=== PATIENT | male | born 1960 | race Caucasian/White ===

== ENCOUNTER 2017-02-22 11:55 | Observation (INO) | payer OTHER ==
[2017-02-22] MEDS ORDERED: IPRATROPIUM-ALBUTEROL 3 ML NEB INHALATION STA (12:15)
[2017-02-22] MEDS ORDERED: LEVOFLOXACIN 750 MG TAB PO STA (12:15)
[2017-02-22] MEDS ORDERED: SODIUM CHLORIDE 0.9% 1,000 ML IV STA (12:15)
[2017-02-22] MEDS ORDERED: methylPREDNISolone SOD SUCCI 125 MG/2 ML VIAL IV STA (12:15)
[2017-02-22] MEDS ORDERED: ONDANSETRON 4 MG/2 ML VIAL IVP STA (12:19)
[2017-02-22] MEDS ORDERED: HYDROmorphone 1 MG/ML 1 ML SYRINGE IVP STA ×2 (12:19→14:48)
--- NOTE | 2017-02-22 12:21 | ED ---
SOB HPI - General Chief Complaint: Shortness of Breath Stated Complaint: Difficulty Breathing Time Seen by Provider: 02/22/17 11:59 Source: patient Mode of arrival: EMS Limitations: no limitations - History of Present Illness Initial Comments: Presenting complaining of shortness of breath, patient has a chronic shortness of breath he is a smoker and he has smoked for 48 years is 56 and now he started smoking when he was 8 years old. His shortness of breath has gotten worse for the last 3 days he denies any chest pain and there is no chest pain with a deep breaths at all denies any fever or chills he has a chronic cough and he has been bringing up some phlegm. Complaining about the back pain and back pain is also chronic he fell 3 days ago back pain is in the mid thoracic region no loss of bowel or bladder control - Related Data Home Medications Medication Instructions Recorded Confirmed Albuterol Nebulized [Ventolin 2.5 mg INHALATION RT-QID PRN 04/06/14 02/22/17 Nebulized] HYDROcodone/APAP 10-325MG [[place] 1 tab PO Q4HR PRN 04/06/14 02/22/17 10] Montelukast Sodium [Singulair] 10 mg PO DAILY 04/06/14 02/22/17 Omeprazole [PriLOSEC] 20 mg PO AC-BRKFST 04/06/14 02/22/17 amLODIPine [Norvasc] 10 mg PO DAILY 04/06/14 02/22/17 Albuterol Inhaler [Ventolin Hfa 2 puff INHALATION RT-QID PRN 02/22/17 02/22/17 Inhaler] Flunisolide [Aerospan] 2 puff INHALATION RT-BID 02/22/17 02/22/17 Umeclidinium [place] [Incruse 1 puff INHALATION RT-DAILY 02/22/17 02/22/17 Ellipta] Previous Rx's Medication Instructions Recorded Cyclobenzaprine [Flexeril] 10 mg PO TID #14 tab 05/09/15 Allergies Allergy/AdvReac Type Severity Reaction Status Date / Time morphine Allergy Itching Verified 02/22/17 12:50 Review of Systems ROS Statement: Those systems with pertinent positive or pertinent negative responses have been documented in the HPI. ROS Other: All systems not noted in ROS Statement are negative. Past Medical History Past Medical History: Chest Pain / Angina, COPD, GERD/Reflux, Liver Disease, Pneumonia, Vascular Disorder Additional Past Medical History / Comment(s): hearing loss bilateral ears, diverticulitis, Chronic Hepatits C, arthritis, chronic back pain, fracture left foot, right leg, ribs, and right arm due to injury, scoliosis History of Any Multi-Drug Resistant Organisms: MRSA Date of last positivie culture/infection: 2002 MDRO Source:: left hand wound Additional Past Surgical History / Comment(s): colonoscopy, bilateral hand surgery, left arm repair of severed arteries and tendons, Past Anesthesia/Blood Transfusion Reactions: No Reported Reaction Past Psychological History: Anxiety Smoking Status: Current every day smoker Past Alcohol Use History: None Reported Additional Past Alcohol Use History / Comment(s): occasional alcholol recently bur history of heavy use in the past. Past Drug Use History: Marijuana - Past Family History Father Family Medical History: Cancer General Exam - General Exam Comments Initial Comments: General: The patient is awake and alert, in no distress, and does not appear acutely ill. GCS is 15 Skin: Skin is warm and dry and no rashes or lesions are noted. Eye: Pupils are equal, round and reactive to light, extra-ocular movements are intact; there is normal conjunctiva bilaterally. Ears, nose, mouth and throat: There are moist mucous membranes and no oral lesions. Neck: The neck is supple, there is no tenderness him a no neck stiffness or any signs of meningitis he does have a chronic neck pain Cardiovascular: There is a regular rate and rhythm. No murmur, rub or gallop is appreciated. Respiratory: To auscultation bilateral, exam is consistent with a moderate to severe COPD Gastrointestinal: Soft, non-distended, non-tender abdomen without masses or organomegaly noted. There is no rebound or guarding present. Bowel sounds are unremarkable. Back: There is tenderness at the middle to lower thoracic region no paraspinal muscle spasms noticed, lumbar region is unremarkable Musculoskeletal: Normal ROM, no tenderness, There is no pedal edema. There is no calf tenderness or swelling. No cords were appreciated. Neurological: CN II-XII intact, Cranial nerves III through XII are intact. There are no obvious motor or sensory deficits. Coordination appears grossly intact. Speech is normal. Psychiatric: Cooperative, appropriate mood & affect, normal judgment. Limitations: no limitations Course Vital Signs 02/22/17 02/22/17 02/22/17 12:01 12:17 12:23 Temperature 97.9 F Pulse Rate 16 L 77 Respiratory 16 18 Rate Blood Pressure 141/82 O2 Sat by Pulse 97 Oximetry 02/22/17 02/22/17 02/22/17 12:34 13:15 14:15 Temperature 98.2 F Pulse Rate 81 85 81 Respiratory 18 18 Rate Blood Pressure 134/79 134/81 O2 Sat by Pulse 97 97 Oximetry I am EKG is normal sinus rhythm medical rate 71 NM interval is 166 QRS duration is 88 QT/QTc is 394/428 review of this EKG reveals T-wave inversion in lead [address] elevation or ST depression noticed in the other leads Is in was reassessed at 1545 patient still feels short winded and now though he didn't tell me when he came and he said he fell last night there was no heat in the house he tripped he denies any head injury but he said he fell day before as well and he would like to stay in the umbilical area and do a head CT make sure he doesn't have any subdural and will put him in for acute exacerbation of COPD and pneumonia Medical Decision Making - Lab Data Result diagrams: 02/22/17 12:12 02/22/17 12:12 Lab Results 02/22/17 02/22/17 02/22/17 Range/Units 12:12 12:12 12:12 WBC 6.9 (3.8-10.6) k/uL RBC 5.62 (4.30-5.90) m/uL Hgb 17.7 H (13.0-17.5) gm/dL Hct 52.8 (39.0-53.0) % MCV 93.8 (80.0-100.0) fL MCH 31.5 (25.0-35.0) pg MCHC 33.6 (31.0-37.0) g/dL RDW 13.1 (11.5-15.5) % Plt Count 289 (150-450) k/uL Neutrophils % 63 % Lymphocytes % 29 % Monocytes % 5 % Eosinophils % 0 % Basophils % 0 % Neutrophils # 4.4 (1.3-7.7) k/uL Lymphocytes # 2.0 (1.0-4.8) k/uL Monocytes # 0.3 (0-1.0) k/uL Eosinophils # 0.0 (0-0.7) k/uL Basophils # 0.0 (0-0.2) k/uL PT (9.0-12.0) sec INR (<1.1) APTT (22.0-30.0) sec Sodium 146 H (137-145) mmol/L Potassium 4.5 (3.5-5.1) mmol/L Chloride 110 H (98-107) mmol/L Carbon Dioxide 24 (22-30) mmol/L Anion Gap 12 mmol/L BUN 13 (9-20) mg/dL Creatinine 0.64 L (0.66-1.25) mg/dL Est GFR (MDRD) Af Amer >60 (>60 ml/min/1.73 sqM) Est GFR (MDRD) Non-Af >60 (>60 ml/min/1.73 sqM) Glucose 101 H (74-99) mg/dL Calcium 10.0 (8.4-10.2) mg/dL Total Bilirubin 0.6 (0.2-1.3) mg/dL AST 21 (17-59) U/L ALT 24 (21-72) U/L Alkaline Phosphatase 61 (38-126) U/L Total Creatine Kinase 50 L (55-170) U/L CK-MB (CK-2) 0.4 (0.0-2.4) ng/mL CK-MB (CK-2) Rel Index 0.8 Troponin I <0.012 (0.000-0.034) ng/mL NT-Pro-B Natriuret Pep pg/mL Total Protein 7.9 (6.3-8.2) g/dL Albumin 4.4 (3.5-5.0) g/dL 02/22/17 02/22/17 Range/Units 12:12 12:12 WBC (3.8-10.6) k/uL RBC (4.30-5.90) m/uL Hgb (13.0-17.5) gm/dL Hct (39.0-53.0) % MCV (80.0-100.0) fL MCH (25.0-35.0) pg MCHC (31.0-37.0) g/dL RDW (11.5-15.5) % Plt Count (150-450) k/uL Neutrophils % % Lymphocytes % % Monocytes % % Eosinophils % % Basophils % % Neutrophils # (1.3-7.7) k/uL Lymphocytes # (1.0-4.8) k/uL Monocytes # (0-1.0) k/uL Eosinophils # (0-0.7) k/uL Basophils # (0-0.2) k/uL PT 11.8 (9.0-12.0) sec INR 1.2 (<1.1) APTT 26.9 (22.0-30.0) sec Sodium (137-145) mmol/L Potassium (3.5-5.1) mmol/L Chloride (98-107) mmol/L Carbon Dioxide (22-30) mmol/L Anion Gap mmol/L BUN (9-20) mg/dL Creatinine (0.66-1.25) mg/dL Est GFR (MDRD) Af Amer (>60 ml/min/1.73 sqM) Est GFR (MDRD) Non-Af (>60 ml/min/1.73 sqM) Glucose (74-99) mg/dL Calcium (8.4-10.2) mg/dL Total Bilirubin (0.2-1.3) mg/dL AST (17-59) U/L ALT (21-72) U/L Alkaline Phosphatase (38-126) U/L Total Creatine Kinase (55-170) U/L CK-MB (CK-2) (0.0-2.4) ng/mL CK-MB (CK-2) Rel Index Troponin I (0.000-0.034) ng/mL NT-Pro-B Natriuret Pep 304 pg/mL Total Protein (6.3-8.2) g/dL Albumin (3.5-5.0) g/dL Critical Care Time Total Critical Care Time: 30 Critical Care Time: When he came in he was quite hypoxic down we gave him a neb treatments and Solu- Medrol and oxygen he felt slightly better also given some pain medication for his chronic back pain thoracic spine x-ray was done all these were excised all these were discussed with the patient at 1545 he still feels short winded and he is here feel more comfortable staying in a while then now arranged admission he will be on inhaled steroids IV steroids he will be covered for the community- acquired pneumonia and other quinolones or Rocephin and Zithromax along with the short and long-acting bronchodilators Disposition Clinical Impression: Acute exacerbation of chronic obstructive pulmonary disease (COPD), Pneumonia Disposition: ADMITTED IP TO THIS HOSP Condition: Good
[2017-02-22 12:39] LABS: Basophils % (A) 0 %; CH 30.3; CHCM 32.5; Eosinophils % (A) 0 %; HCT 52.8 % (39.0-53.0); HDW 2.32; HGB 17.7 gm/dL (13.0-17.5); Luc # (Auto) 0.19; Luc % (Auto) 3; Lymphocytes % (A) 29 %; MCH 31.5 pg (25.0-35.0); MCHC 33.6 g/dL (31.0-37.0); MCV 93.8 fL (80.0-100.0); Mean Platelet Volume 7.6; Monocytes # (A) 0.3 k/uL (0-1.0); Monocytes % (A) 5 %; Neutrophils # (A) 4.4 k/uL (1.3-7.7); Neutrophils % (A) 63 %; RBC 5.62 m/uL (4.30-5.90); RDW 13.1 % (11.5-15.5); WBC 6.9 k/uL (3.8-10.6); WBC (Perox) 6.77
[2017-02-22 12:48] LABS: INR 1.2 (<1.1); Partial Thromboplastin Time 26.9 sec (22.0-30.0); Prothrombin Time 11.8 sec (9.0-12.0)
[2017-02-22 12:49] LABS: ALT 24 U/L (21-72); AST 21 U/L (17-59); Alkaline Phosphatase 61 U/L (38-126); Anion Gap 12 mmol/L; Blood Urea Nitrogen 13 mg/dL (9-20); Carbon Dioxide 24 mmol/L (22-30); Chloride 110 mmol/L (98-107); Glucose 101 mg/dL (74-99); Non-African American GFR(MDRD) >60 (>60 ml/min/1.73 sqM); Potassium 4.5 mmol/L (3.5-5.1); Sodium 146 mmol/L (137-145); Total Bilirubin 0.6 mg/dL (0.2-1.3); Total Protein 7.9 g/dL (6.3-8.2)
[2017-02-22 12:58] LABS: Creatine Kinase 50 U/L (55-170)
--- NOTE | 2017-02-22 13:01 | XR ---
EXAMINATION TYPE: XR chest 2V DATE OF EXAM: 02/22/2017 12:53 PM COMPARISON: Chest x-ray May 09, 2015. HISTORY: Difficulty breathing per order. Chest pain today. TECHNIQUE: Frontal and lateral views of the chest are obtained. FINDINGS: There is patchy left basilar atelectasis and/or infiltrate. Underlying emphysematous change is suspected with increased retrosternal airspace and flattened hemidiaphragms on lateral view. Righ t lung is clear. No pleural effusion or pneumothorax is seen bilaterally. The cardiac silhouette size is within normal limits. Exaggerated thoracic kyphosis is noted. IMPRESSION: Chronic emphysematous change with patchy left basilar atelectasis and/or infiltrate on c urrent study.
--- NOTE | 2017-02-22 13:02 | XR ---
EXAMINATION TYPE: XR thoracic spine complete DATE OF EXAM: 02/22/2017 12:53 PM CLINICAL HISTORY: Mid back pain today. TECHNIQUE: Frontal, lateral, and swimmer's view of thoracic spine are obtained. COMPARISON: None. FINDINGS: Thoracic spine show exaggerated kyphosis without evidence of acute fracture or dislocation. Vertebral body heights are preserved. There is severe disc space narrowing with sclerosis and spurr ing at T8-T9 level. There is additional moderate multilevel anterior and lateral spurring in the mid to lower thoracic spine. There is mild to moderate disc space narrowing at T10-T11 level. Visualized ribs are intact bilaterally. IMPRESSION: Exaggerated kyphosis with multilevel degenerative changes as detailed above.
[2017-02-22 13:12] LABS: Creatine Kinase MB 0.4 ng/mL (0.0-2.4); Troponin I <0.012 ng/mL (0.000-0.034)
[2017-02-22] MEDS ORDERED: ALBUTEROL NEBULIZED 2.5 MG/3 ML INHALATION PRN (16:02)
[2017-02-22] MEDS ORDERED: ALBUTEROL INHALER 60 PUFF/8 GM INHALER INHALATION PRN (16:02)
[2017-02-22] MEDS ORDERED: RX INFO: IV CONTRAST WAS GIVEN 1 EACH MISC MISCELLANE PRN (16:04)
--- NOTE | 2017-02-22 16:47 | CT ---
EXAMINATION TYPE: CT brain wo con DATE OF EXAM: 02/22/2017 4:41 PM COMPARISON: NONE HISTORY: Patient complains of dizziness and syncopal episodes. CT DLP: 979 mGycm Automated exposure control for dose reduction was used. FINDINGS: Central structures are midline. There is no evidence of hydrocephalus. No acute focal lesion, mass ef fect or midline shift is seen. I do not see evidence of intracranial blood. There is chronic mucoperiosteal thickening involving ethmoid sinuses. There is a small air-fluid leve l in the left maxillary sinus. The frontal sinuses are hypoplastic. The mastoid air cells are normal. There is no depressed skull fracture. IMPRESSION: 1. NO ACUTE INTRACRANIAL ABNORMALITY. 2. ACUTE ON CHRONIC SINUSITIS INVOLVING THE ETHMOID AND LEFT MAXILLARY SINUS.
--- NOTE | 2017-02-22 16:55 | CT ---
EXAMINATION TYPE: CT angio chest DATE OF EXAM: 02/22/2017 4:45 PM COMPARISON: NONE HISTORY: Patient complains of shortness of breath with history of COPD and smoking for [address] DLP: 206.5 mGycm. Automated Exposure Control for Dose Reduction was Utilized. CONTRAST: CTA scan of the thorax is performed with IV Contrast, patient injected with 100 mL of Omnipaque 350, pulmonary embolism protocol. MIP Images are created on CT scanner and reviewed. FINDINGS: LUNGS: There is mild to moderate underlying emphysematous change present bilaterally. Evaluation of l ower lungs is suboptimal as there is respiratory motion artifact degradation limiting evaluation for subcentimeter nodularity. There is some linear atelectasis or scarring posteriorly in both lung bases . No pleural effusion or pneumothorax is seen bilaterally. MEDIASTINUM: There is suboptimal bolus with equal contrast noted in right and left heart systems, the re is no central saddle or lobar pulmonary embolism, smaller segmental and subsegmental PE cannot be entirely excluded on this exam. There are no greater than 1 cm hilar or mediastinal lymph nodes. P rominent but subcentimeter prevascular, paratracheal, and bilateral hilar lymph nodes are seen. No pe ricardial effusion is seen. Heart size is upper limits of normal. OTHER: Low dense thickening to both adrenal glands is felt to reflect hyperplasia. There is multileve l spurring in the lower thoracic and upper lumbar spine with multilevel disc space narrowing and vacu um disc phenomenon. There is sclerosis at T8-T9 level noted. Some sclerotic endplate changes are also present. IMPRESSION: 1. Suboptimal bolus without central pulmonary embolism, smaller segmental and subsegmental PE cannot be excluded on this exam. 2. Mild to moderate underlying emphysematous change without suspicious acute pulmonary process.
[2017-02-22] MEDS: methylPREDNISolone SOD SUCCI 125 MG/2 ML VIAL IV SCH ×2 (18:29→23:30)
[2017-02-22] MEDS: HYDROcodone/APAP 10-325MG 1 EACH TAB PO PRN ×2 (18:44→23:34)
[2017-02-22] MEDS ORDERED: FLUNISOLIDE INHALATION SCH (20:00)
[2017-02-22] MEDS ORDERED: SUMAtriptan SUCCINATE 50 MG TAB PO STA (20:17)
--- NOTE | 2017-02-22 20:55 | P.HPIM ---
History of Present Illness Patient admitted dictated admission history and physical #[id number] dictation number Past Medical History Past Medical History: Chest Pain / Angina, COPD, GERD/Reflux, Hypertension, Liver Disease, Osteoarthritis (OA), Pneumonia, Vascular Disorder Additional Past Medical History / Comment(s): hearing loss bilateral ears, diverticulitis, Chronic Hepatits C-stated on a waiting list for tx, arthritis, chronic back pain, fracture left foot NEVER HAD SX- ANKLE NOT STABLE, right leg , ribs, and right arm due to injury, scoliosis RUPTURED DISC, SEASONAL ALLERGIES , "dizzy spells alst 3 days" History of Any Multi-Drug Resistant Organisms: MRSA Date of last positivie culture/infection: 2002 MDRO Source:: left hand wound Additional Past Surgical History / Comment(s): liver bx( found hep c), bilateral hand surgery-tendon repair, left arm repair of severed arteries and tendons, Past Anesthesia/Blood Transfusion Reactions: No Reported Reaction Past Psychological History: Anxiety Smoking Status: Current every day smoker Past Alcohol Use History: None Reported Additional Past Alcohol Use History / Comment(s): started smoking at age 8- currently 1-2 packs per day. past heacvy etoh quit 3 years ago. Past Drug Use History: Marijuana Additional Drug Use History / Comment(s): quit marijuana 1 year ago - Past Family History Father Family Medical History: Cancer Medications and Allergies Home Medications Medication Instructions Recorded Confirmed Type Albuterol Nebulized [Ventolin 2.5 mg INHALATION RT-QID PRN 04/06/14 02/22/17 History Nebulized] HYDROcodone/APAP 10-325MG [[place] 1 tab PO Q4HR PRN 04/06/14 02/22/17 History 10] Montelukast Sodium [Singulair] 10 mg PO DAILY 04/06/14 02/22/17 History Omeprazole [PriLOSEC] 20 mg PO AC-BRKFST 04/06/14 02/22/17 History amLODIPine [Norvasc] 10 mg PO DAILY 04/06/14 02/22/17 History Albuterol Inhaler [Ventolin Hfa 2 puff INHALATION RT-QID PRN 02/22/17 02/22/17 History Inhaler] Flunisolide [Aerospan] 2 puff INHALATION RT-BID 02/22/17 02/22/17 History Umeclidinium [place] [Incruse 1 puff INHALATION RT-DAILY 02/22/17 02/22/17 History Ellipta] Allergies Allergy/AdvReac Type Severity Reaction Status Date / Time morphine Allergy Itching Verified 02/22/17 12:50 Physical Exam Vitals: Vital Signs Temp Pulse Pulse Resp BP BP Pulse Ox 02/22/17 18:12 96.4 F L 67 18 137/72 96 02/22/17 17:27 98.2 F 69 18 137/90 97 02/22/17 16:06 74 20 163/84 98 Results CBC & Chem 7: 02/22/17 12:12 02/22/17 12:12
[2017-02-22] MEDS: IPRATROPIUM-ALBUTEROL 3 ML NEB INHALATION PRN (21:18)
[2017-02-22] MEDS: BUDESONIDE 0.5 MG/2 ML NEBU INHALATION SCH (21:24)
[2017-02-22] MEDS: SODIUM CHLORIDE 0.9% 1,000 ML IV SCH (21:24)
[2017-02-22 21:27] LABS: INR 1.3 (<1.1); Partial Thromboplastin Time 27.7 sec (22.0-30.0); Prothrombin Time 12.4 sec (9.0-12.0)
[2017-02-22] MEDS ORDERED: CYCLOBENZAPRINE 10 MG TAB PO SCH (22:00)
[2017-02-22] MEDS: traZODone HCL 100 MG TAB PO SCH (23:30)
--- NOTE | 2017-02-22 23:30 | HP ---
DATE OF ADMISSION: 02/22/2017 Age 56-year-old white male, . New data: He is 5 feet 5 inches. Weight 63.50 kg, BSA 1.70 sq m, BMI 23.3 kg/sq m. Allergy to morphine. CHIEF COMPLAINT: The patient was seen in the emergency room by the ER physician, Dr. Herring because of the shortness of breath could not breathe for the last 4 days duration. HISTORY OF PRESENT ILLNESS: Patient well known to me as well as Dr. Carolina Kwong who has been under care for him as well. The patient was not seen 4 more than 6 months to 8 months and he said that he was busy. He presented to the emergency room with shortness of breath and was feeling no more air come the lung that progressed in the last 4 days. The patient new complaint has been dizzy and have been passing out in the last 4 days as well happened to him 3 times per day. The patient has advanced emphysema and chronic obstructive pulmonary disease he has been smoking 2 packs per day. He was complaining that he could not sleep. He takes trazodone 50 mg at home; however, only gives him sleep for two hours. He felt sweating and coughing light green for the last 10 years. He was treated in the past with injections over there by Dr. ROSA M Kwong. The patient has been smoking 2 packs per day for the last 40 years. PAST MEDICAL HISTORY: He has underlying hepatitis C and he has been under care of Dr. Andrews and actually the one who sees him the Physician junior assistant manager, Mercedes Rivera and he was not treated so far. He has been seeing him for at least 3 to 4 years. He stated that he was not able to get the medicine and he is on the list. He quit drinking alcohol in the last 2 years. He is a . His first and after that he had a girlfriend for 30 years but currently she left him as well. He has 4 children and 13 grandchildren. He does not smoke marijuana currently. He felt that not helping him. He had pain in the spine found with the x-ray done in hospital thoracic x-ray that he had sclerosis at level 8 and 9 and he had discogenic disease at the 12th and he had also had mild kyphosis with tenderness on the back and he takes some pain medication. He also complained that he had a migraine headache and the pain medication Mccoll is not helping. The patient denied any fever or chills but he has night sweating. He has been coughing for the last few years with the underlying chronic cough. Father at age of 85 with ( ) cancer. His mother after her liver transplant 12 years later in [place] at his sister's. He has 2 sisters and 2 brothers alive and 2 , one from one gun shot in the back and one from cirrhosis of the liver. She was a drinker. REVIEW OF SYSTEMS: Neuropsychiatry: He has underlying history of anxiety and depression. CARDIOVASCULAR: No history of CT in the past. However, he stated that he has been dizzy. He falls or pass out three times per day for the last 4 days. RESPIRATORY: Could not breathe with the underlying emphysema and COPD and chronic cough. GI: He denies any symptoms of abdominal pain or cramps. However, he had history of hepatitis, which has been chronically present and was not treated so far. GENITOURINARY: He had no symptoms. MUSCULOSKELETAL: He has generalized weakness and losing weight with the pain in the spine. PHYSICAL EXAMINATION: GENERAL APPEARANCE: His vital signs on admission temperature 96.4, pulse 69, respiratory rate 18 and his blood pressure 137/90 and 137/72, with a mean blood pressure ranging between 93 to 101. HEENT: Head is normocephalic atraumatic. Pupils reactive. OROPHARYNX: Negative. Neck was supple. No JVD. CHEST: Increased anteroposterior diameter with emphysematous lung and hyperinflated. CARDIAC: Heart is PMI in the fifth intercostal space outside midclavicular line. Normal S1, S2. No gallop. ABDOMEN: Positive bowel sounds. Questionable liver and spleen and we will obtain the ultrasound and with the history of hepatitis C. The suprapubic no tenderness. No flank tenderness. EXTREMITIES: No edema. Positive pulses, hammertoe otherwise neurologically stable. He is moving 4 extremities and cranial nerves grossly intact and with mild tremor was present in the upper extremities. He denies any alcohol intake recently. With the laboratory indicating that sodium 146 and is higher than normal with the underlying probability of dehydration as well as his hemoglobin 17.7 with hematocrit 52.8 with the underlying hemoconcentration. His PT and INR was normal on admission and his creatinine 0.64 and carbon dioxide 24, glomerular filtration rate more than 60. Blood sugar 101, calcium is 10, total bilirubin 0.6 with the underlying AST and ALT was normal and 21 and 24. His alk phos also 61. His cardiac panel was negative. His BNP 304. No evidence of congestive heart failure with albumin 4.4. The x-rays report done. He had CTA for ruling out pulmonary emboli., Which is essentially was no evidence of pulmonary embolism; however, they stated that note that indicating no clear impression with CTA indicating that suboptimal bolus emphysema without central pulmonary embolism. Smaller segmental and subsegmental BNP could not be excluded. However, no currently PE. Mild to moderate emphysematous changes and without acute suspicious of pulmonary process. Also did not have note as a chest x-ray indicating atelectasis versus infiltrate and we do not have any finding to indicate infiltrate. Brain CT he had it on admission no acute intracranial abnormalities, acute on chronic sinusitis involving the ethmoid and left maxillary sinus. He has also thoracic spine x-ray and so the pain in the back and they indicating that he had exaggerated kyphosis with a multidegenerative and he has mild to moderate disc space narrowing at T10 and 11. He had severe disc space narrowing with sclerosis and sparing at T8 and T9. He has as well a chest x-ray and the chest x-ray indicating chronic emphysematous changes with patchy left basilar atelectasis with old infiltrate was questionable. EKG on admission to the ER normal sinus rhythm with a normal EKG. ASSESSMENT: 1. Acute shortness of breath with underlying emphysematous changes. 2. No home oxygen with the underlying respiratory failure on top of chronic. 3. Chronic smoker. 4. Hepatitis C to rule out sequelae as hepatosplenomegaly patient was not treated yet. 5. Insomnia. 6. Dizziness with passing out of unknown reasons. 7. Migraine headache. PLAN: 1. We will consult Dr. Carolina Kwong for evaluation and treatment and also underlying stage of emphysema. 2. Obtaining laboratory for the hepatitis C. 3. Started trazodone again. 4. I do not see evidence of pneumonia at this time. However, will DC Levaquin and start on the Rocephin until further temperature, if the temperature above 100, we will get blood culture again. I am not convinced that the patient has pneumonia at this time and we will be obtaining a urinalysis culture and sensitivity as well starting nicotine patch. 5. Decrease IV fluid to 75 mL per with the underlying dehydration with the hemoconcentration with response to smoking, increased hemoglobin and probably exchange of oxygen. 6. Further treatment depends on the patient condition and improvement.
[2017-02-22] MEDS: HEPARIN SODIUM,PORCINE 5,000 UNIT/ML 1 ML VIAL SQ SCH (23:31)
[2017-02-23] MEDS: HYDROcodone/APAP 10-325MG 1 EACH TAB PO PRN ×5 (03:03→20:24)
[2017-02-23 03:11] LABS: Appearance,Urine Clear (Clear); Bilirubin,Urine Negative (Negative); Glucose,Urine (UA) Negative (Negative); Ketones,Urine Trace (Negative); Leukocyte Esterase,Urine Negative (Negative); Nitrite,Urine Negative (Negative); PH, Urine 6.5 (5.0-8.0); Protein,Urine Negative (Negative); Specific Gravity,Urine 1.012 (1.001-1.035); UA Billing (MACRO vs. MICRO) CHEM; Urobilinogen,Urine <2.0 mg/dL (<2.0)
[2017-02-23] MEDS: methylPREDNISolone SOD SUCCI 125 MG/2 ML VIAL IV SCH ×3 (05:32→23:07)
[2017-02-23] MEDS: IPRATROPIUM-ALBUTEROL 3 ML NEB INHALATION PRN ×2 (07:47→19:18)
[2017-02-23] MEDS: BUDESONIDE 0.5 MG/2 ML NEBU INHALATION SCH ×2 (07:47→19:18)
--- NOTE | 2017-02-23 07:47 | US ---
EXAMINATION TYPE: US abdomen complete DATE OF EXAM: 02/23/2017 7:29 AM COMPARISON: NONE CLINICAL HISTORY: 56-year-old male with hepatitis C, ascites, hepatosplenomegaly. TECHNIQUE: Multiple sonographic images of the abdomen were obtained. FINDINGS: Liver Length: 11.1 cm Gallbladder Wall: 0.3 cm CBD: 0.3 cm Spleen: 11.1 cm Right Kidney: 9.7 x 5.9 x 5.4 cm Left Kidney: 11.5 x 5.3 x 5.3 cm Pancreas: Only a small portion of the pancreatic neck and body are seen. Remainder suboptimally visua lized secondary to shadowing from bowel gas. Liver: As compared to 07/04/2015, shows interval decrease in size. No focal lesion. Gallbladder: Wall thickness is at the upper limits of normal at 3 mm. There is no abnormal distentio n, pericholecystic fluid, or shadowing calculi. Evidence for sonographic Jarvis's sign: Yes CBD: Within normal limits Spleen: Within normal limits Right Kidney: No hydronephrosis or masses seen Left Kidney: No hydronephrosis or masses seen. Bilateral prominent columns of Dandre again noted. Upper IVC: wnl Abd Aorta: Proximal portion not seen due to bowel gas. Remainder is normal caliber. IMPRESSION: 1. The liver is measured smaller as compared to 07/04/2015. No sonographic evidence for hepatoma. 2. No ascites fluid. No splenomegaly appreciated by ultrasound. 3. Positive sonographic Jarvis's sign though without ancillary findings of cholelithiasis or acute ch olecystitis. This could reflect referred pain. If further imaging evaluation of the gallbladder is de sired, HIDA scan with ejection fraction can be performed.
[2017-02-23 07:48] LABS: Glucose,Whole Blood 128 mg/dL (75-99)
[2017-02-23] MEDS: INSULIN LISPRO (humaLOG) 300 UNIT/3 ML VIAL SQ SCH ×4 (07:50→20:39)
[2017-02-23] MEDS: NICOTINE 21MG/24HR PATCH TRANSDERM SCH (07:59)
[2017-02-23] MEDS: PANTOPRAZOLE 40 MG TABLET PO SCH (08:00)
[2017-02-23] MEDS ORDERED: TIOTROPIUM 18 MCG/PUFF INHALER INHALATION SCH (08:00)
[2017-02-23] MEDS: HEPARIN SODIUM,PORCINE 5,000 UNIT/ML 1 ML VIAL SQ SCH ×3 (08:00→23:07)
[2017-02-23] MEDS: MONTELUKAST 10 MG TAB PO SCH (08:00)
[2017-02-23] MEDS: LEVOFLOXACIN 500 MG TAB PO SCH (08:00)
[2017-02-23] MEDS: amLODIPine 10 MG TAB PO SCH (08:01)
[2017-02-23] MEDS: SODIUM CHLORIDE 0.9% 1,000 ML IV SCH (08:01)
[2017-02-23] MEDS ORDERED: NICOTINE 21MG/24HR PATCH TRANSDERM SCH (09:00)
[2017-02-23 09:01] LABS: Basophils % (A) 0 %; CHCM 32.6; Eosinophils % (A) 0 %; HCT 53.9 % (39.0-53.0); HDW 2.22; HGB 17.5 gm/dL (13.0-17.5); Luc # (Auto) 0.06; Luc % (Auto) 1; Lymphocytes # (A) 1.3 k/uL (1.0-4.8); Lymphocytes % (A) 17 %; MCH 31.1 pg (25.0-35.0); MCHC 32.5 g/dL (31.0-37.0); MCV 95.8 fL (80.0-100.0); Monocytes # (A) 0.3 k/uL (0-1.0); Monocytes % (A) 3 %; Neutrophils % (A) 79 %; RBC 5.62 m/uL (4.30-5.90); RDW 13.4 % (11.5-15.5); WBC 7.6 k/uL (3.8-10.6); WBC (Perox) 7.52
[2017-02-23 09:22] LABS: ALT 26 U/L (21-72); AST 18 U/L (17-59); Alkaline Phosphatase 61 U/L (38-126); Anion Gap 12 mmol/L; Bilirubin, Delta 0.3 mg/dL (0.0-0.2); Blood Urea Nitrogen 16 mg/dL (9-20); Calcium 9.8 mg/dL (8.4-10.2); Carbon Dioxide 23 mmol/L (22-30); Chloride 108 mmol/L (98-107); Glucose 118 mg/dL (74-99); Non-African American GFR(MDRD) >60 (>60 ml/min/1.73 sqM); Potassium 4.5 mmol/L (3.5-5.1); Sodium 143 mmol/L (137-145); Total Bilirubin 0.6 mg/dL (0.2-1.3); Total Protein 7.4 g/dL (6.3-8.2)
[2017-02-23 10:37] VITALS: BMI 23.3
[2017-02-23] MEDS ORDERED: SUMAtriptan SUCCINATE 50 MG TAB PO STA (10:41)
[2017-02-23] MEDS ORDERED: methylPREDNISolone 4 MG TAB PO SCH (11:00)
[2017-02-23 11:39] LABS: Glucose,Whole Blood 159 mg/dL (75-99)
--- NOTE | 2017-02-23 14:15 | PN ---
He is a NO CODE status. He is 56 years old white male. DATA: His height is 5 feet 5 inches. Weight 63.50 kg, BSA 1.7 sq m. BMI 23.3 kg. Allergy to MORPHINE. He also stated that BUSPAR has bothered him, make his legs restless. Patient is seen today, evaluated, discussed with him in detail. He was complaining of underlying passing out. However, during his hospital stay overnight that was not observed. He stated that he is able to sit beside the heater and he felt that he was passing out. He does not wear oxygen and we will be obtaining after ambulation which is more than 60 [address] to evaluate desaturation and hypoxemia as well as check the blood pressure to see if any drop causing his claiming of being dizzy or passing out. He had ultrasound of the abdomen and we found that his liver length is 11.1 and spleen is 11.1. The kidney is 9.7 x 5.9 x5.4 and this is the right kidney. The left kidney is 11.5 x 5.3 x5.3, which is normal size. The conclusion of the ultrasound, the liver measured, which smaller than 07/04/2015 by a compression. No sonographic evidence of hepatoma. No ascites. No splenomegaly by the ultrasound. He had a positive sonographic Jarvis's signs through without ancillary finding as cholelithiasis or acute cholecystitis. The etiology is unclear. However, recommendation HIDA scan if the patient has symptoms. Currently the patient has no symptoms and he had no right upper quadrant tenderness and at this time, we will postpone the HIDA scan for no symptoms at this time. During the admission to the hospital in the emergency room, he had CTA of the chest, which did not indicate clearly any pulmonary emboli. He had a CT scan of the brain was negative. He had underlying degenerative disc disease of the cervical spine as well as the dorsal spine with mild kyphosis and finding in 8 and 9 thoracic as well as 10 and 11. There is no evidence of pneumonia. No fever, no chills. No clinical evidence, no cough or expectoration. He had a sputum culture done last might and we do not have the results yet. Today on his physical exam, his temperature 96.9 orally, pulse rate 61, respiratory rate 16, blood pressure 145/76 with a mean 99 on room air 95. ON PHYSICAL EXAMINATION: HEENT was negative. Neck was supple. Chest was emphysematous. hyperinflated and distant heart sounds present in percussion on the natural dullness and the air entry was decreased bilaterally with expansion of the thoracic frame with underlying significant emphysema. No wheezes, however, no rhonchi and no dullness on percussion. HEART: PMI in the fifth outside midclavicular line. Normal S1, S2. No gallop. THE ABDOMEN: No tenderness at this time and we know that there is no organ enlargement by the ultrasound and the physical examination. EXTREMITIES: No edema and positive pulses. The laboratories the laboratory was indicating that WBC 7.6, hemoglobin 17.5 with hematocrit is 53.9. Patient with the smoking 2 packs per day for more than 40 years and probably he has oxygen exchange abnormalities with the increased hemoglobin. His electrolytes indicating sodium 143, potassium 4.5 and his carbon dioxide 23. His BUN 16 and creatinine 0.69. Blood sugar was 118. His hepatic function profile indicating actually normal with the normal liver enzyme AST 18, ALT 26 and alkaline phosphatase 61. His total protein is 7.4 and albumin 4.2, both within normal limits. He had a urinalysis essentially negative leukocyte and clear, protein is negative. We ordered the hepatitis C; however, that is sent out and will not be available soon. ASSESSMENT: 1. Underlying history of shortness of breath associated with acute on top of chronic with the underlying chronic obstructive pulmonary disease, chronic smoker 2 packs per day for 40 years. 2. History of passing out, questionable "syncopal"; however, there is no eye witness and nothing happened during the hospital stay with normal CT scan. 3. History of chronic smoker and not willing to stop smoking. Currently he is on nicotine patch, however, he stated that once I get out of the hospital I will be smoking again. We discussed cessation of smoking with Chantix as stated that it gives him bad reaction and adverse effect and he stated as well that nothing helped in the past. It appeared to me the patient did not want to try at least to see the patch is helping for cutting down. I did discuss with the patient consulting psychiatry for evaluation and treatment and he complaining of insomnia. We started him on trazodone and he was complaining of anxiety and I did discuss with him the benzodiazepine and addiction since he is currently had been taking the [place] and appeared to be taking it for his back with the underlying kyphosis and degenerative arthritis of the back. He had history of advanced degenerative cervical spine seen by Dr. Torrey Dominguez the neurosurgeon, but he did not agree with Dr. Torrey Dominguez for any surgical intervention and he wants to see Dr. Colindres the spine surgeon as outpatient and if his insurance has been permitted that. The patient also noncompliant and he has not been seen within the last 6 months also he did not see his pulmonary doctor, Dr. Carolina Kwong for at least more than 5 to 6 years. PLAN: 1. We will doing ambulation and check desaturation of oxygen for home oxygen. However, patient was resistant to do that because he planned to smoke again. 2. Check with ambulation his blood pressure to rule out orthostatic hypotension. Also to see if he is going to have these episodes of passing out as he claimed or not, advised if he had it, he should call the nurse. 3. We are going to discontinue the steroids. There is no evidence of wheezes or bronchospasm. We discontinued IV steroid and placed him on Medrol 4 mg tablet q.a.m. 4. Meanwhile, continue with the Rocephin through the saline lock and discontinue the IV. 5. Consultation with Dr. Carolina Kwong. 6. Ambulation as tolerated as well as ambulation in the hallway and recheck his oxygen and vital signs. 7. If there is no evidence of any abnormalities probably patient may discharge in 24 to 48 hour and to be followed as outpatient. The patient has EKG with normal sinus rhythm also on examination his heart rate is normal. No evidence of bruits on the carotids as well. His blood pressure is mildly elevated, 145/76 and we will start ( ) and subsequently today blood pressure down to 124/83 and 110/87 and 128/75 for the orthostatic and it was 124 /83 on sitting and standing 110/78 and supine 128/75 with no evidence of orthostatic hypotension.
[2017-02-23] MEDS ORDERED: NAPHAZOLINE-PHENIRA 0.025-0.3% DROPS 15 ML BTL BOTH EYES PRN (16:14)
[2017-02-23] MEDS ORDERED: ARTIFICIAL TEARS-HYPROMELLOSE DROPS 15 ML BTL BOTH EYES PRN (16:47)
[2017-02-23 17:32] LABS: Glucose,Whole Blood 110 mg/dL (75-99)
--- NOTE | 2017-02-23 18:15 | CONS ---
DATE OF CONSULTATION: Terry Devine is a 56-year-old male with a history of heavy smoking who comes in with increasing shortness of breath that he has had chronically. This had gotten worse over the last 3 to 4 days, has been associated with back pain. He also had wheezing and cough. He subsequently was seen in the ED and admitted for further evaluation. PAST MEDICAL HISTORY: Positive for COPD and possibly asthma. Hearing loss in his ear. Diverticulitis, chronic hep C, fracture of the left foot, right leg, ( ) and right arm, history of scoliosis, history of MRSA infection in the past with colonoscopy, bilateral hand surgery. SOCIAL HISTORY: Patient smoked from age 8, a packs of cigarettes per day. He also smokes marijuana. REVIEW OF SYSTEMS: Noncontributory. Medications prior to admission were: 1. ( ). 2. Albuterol. 3. Amlodipine. 4. Prilosec. 5. Montelukast. 6. [place]. 7. Aranesp. 8. Flexeril. 9. Albuterol. On physical examination, respiratory rate 16, pulse rate 80, blood pressure 124/83. O2 saturation on 2 liters by nasal cannula is 92%. HEENT reveals pupils are equal. No jugular venous distention. Chest reveals decreased breath sounds, prolonged expiration, bilateral expiratory wheeze. Cardiovascular system reveals S1, S2, no S3, no S4. ABDOMEN: Soft. There is no pedal edema. CT scan of the chest shows no evidence of PE. There is emphysematous changes. IMPRESSION: 1. Chronic obstructive pulmonary disease with acute exacerbation. 2. Possible occult asthma as well. At this point in time, switch his p.o. Medrol to IV Solu-Medrol. Keep him on bronchodilators and aerosolized steroids, stop tiotropium as he is already on ipratropium and DuoNeb, keep his pain under control and agree with keeping him on Montelukast to decreased his need for steroids. His prognosis at this time is guarded. He was counseled regarding his condition and this approach.
[2017-02-23] MEDS: SUMAtriptan SUCCINATE 50 MG TAB PO PRN (19:43)
[2017-02-23 20:51] LABS: Glucose,Whole Blood 137 mg/dL (75-99)
[2017-02-23] MEDS: traZODone HCL 100 MG TAB PO SCH (23:06)
[2017-02-24] MEDS: HYDROcodone/APAP 10-325MG 1 EACH TAB PO PRN ×4 (00:17→12:23)
[2017-02-24] MEDS: methylPREDNISolone SOD SUCCI 125 MG/2 ML VIAL IV SCH (05:13)
[2017-02-24] MEDS: BUDESONIDE 0.5 MG/2 ML NEBU INHALATION SCH (06:54)
[2017-02-24 07:46] LABS: Glucose,Whole Blood 118 mg/dL (75-99)
[2017-02-24 08:09] VITALS: BP 123/78; PULSE 60; RESP 16; TEMP 97.1
[2017-02-24] MEDS: LEVOFLOXACIN 500 MG TAB PO SCH (08:28)
[2017-02-24] MEDS: NICOTINE 21MG/24HR PATCH TRANSDERM SCH (08:28)
[2017-02-24] MEDS: HEPARIN SODIUM,PORCINE 5,000 UNIT/ML 1 ML VIAL SQ SCH (08:28)
[2017-02-24] MEDS: MONTELUKAST 10 MG TAB PO SCH (08:29)
[2017-02-24] MEDS: PANTOPRAZOLE 40 MG TABLET PO SCH (08:29)
[2017-02-24] MEDS: amLODIPine 10 MG TAB PO SCH (08:29)
[2017-02-24] MEDS: INSULIN LISPRO (humaLOG) 300 UNIT/3 ML VIAL SQ SCH (08:29)
[2017-02-24] MEDS: SUMAtriptan SUCCINATE 50 MG TAB PO PRN (10:00)
--- NOTE | 2017-02-24 11:53 | P.DS ---
Providers Date of admission: 02/22/17 15:59 Attending physician: Joaquin Kaiser Consults: 02/23/17 10:31 Consult Physician Stat Consulting Provider: Steve Kwong Reason/Comments: copd Do you want consulting provider notified?: Yes Primary care physician: Joaquin Kaiser This is a dictation on the discharge summary date of service 02/24/2017. Dictation by Dr. Awilda Frazier [facility]. Final diagnosis: #1 chronic emphysema, associated with shortness of breath, no hypoxemia. #2 chronic smoker very resistant to quit smoking, 2 packs per day for 40 years. #3 migraine headache recurrent. #4 advanced COPD with associated chronic bronchitis #5 hepatitis C chronic, not treated, has been followed by Dr. René resendez for hepatitis C. Advised to follow. #6 advanced osteoarthritis of the cervical spine seen in the past by Dr. Torrey De La Rosa and disagree with the surgery. 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 With chronic pain syndrome. #8 noncompliant for follow-up has been seen by Dr. Valdez Kwong pulmonary. #9 No evidence of pneumonia, no evidence of PE, #10 patient tried to leave the floor without permission, discussed with the patient and his wishes to go home. #11 no evidence of liver decompensation. Patient admitted through the emergency room by Dr. Herring ER physician with the shortness of breath. Hospital course: Patient complained of shortness of breath he had several investigation, computed tomography scan angiogram, chest x-ray, CAT scan of the brain, He has emphysema with chronic shortness of breath, patient noncompliant and still smoking, no evidence of pneumonia clinically as im no fever no chills no coughing or expectoration. He complained of headache found to be migraine was not responsive to hydrocodone however response to Imitrex prescription was given on discharge. He had complained of insomnia and we increased his dose for trazodone to 100 mg at bedtime. We consulted Dr. Valdez Kwong the pulmonary who has been treating him in the past. He recommended change to IV steroids however patient wants to go home to switch it to oral steroid with Medrol dosepak and he will be following him as outpatient next week. Currently On discharge exam: The Patient's conscious alert oriented 3 no headache, advised him to be follow-up with compliant with the future plan to refill her him to the neurologist. With the computed tomography scan of the brain is negative. He is uses dentures upper and lower and he doesn't have it with him advised to use it. Pupil was equal reactive and he has mild neurosensory hearing loss. Neck supple no JVD no thyromegaly no lymphadenopathy trachea midline. Chest is barrel chest with the underlying resonance encroaching on the natural dullness of the chest with emphysematous lung hyper inflated. No wheezes no rhonchi's however he is on inhalation therapy and updraft nebulizers. Heart regular sinus rhythm no chest pain and he had a EKG was normal sinus rhythm on admission. Abdomen soft. Bowel sounds no organ enlargement he had ultrasound of the abdomen was negative for enlargement liver or spleen no lesion on the liver with the underlying history of chronic hepatitis C not treated yet no evidence of decompensation of the liver. Patient stated that he does not drink any alcoholic beverage and his liver enzyme was normal. Extremities: No edema. Pulses no neuro deficit ambulatory. Neurologically: Conscious alert oriented ambulatory no neuro deficit mild tremors. Plan: Discharge patient today adjusted his medication on the discharge, follow- up with Dr. Valdez Kwong pulmonary and follow up in the office next week. Prescription given to the patient as well and reviewed the [facility] Patient Condition at Discharge: Good Plan - Discharge Summary New Discharge Prescriptions: Budesonide [Pulmicort] 0.5 mg INHALATION RT-BID #60 nebu HYDROcodone/APAP 10-325MG [[place]ow 10-325] 1 each PO Q6H PRN #10 tab PRN Reason: Shortness Of Breath Ipratropium-Albuterol Nebulize [Duoneb 0.5 mg-3 mg/3 ml Soln] 3 ml INHALATION RT -QID #120 ampul.neb Nicotine 21Mg/24Hr Patch [Habitrol] 1 patch TRANSDERM DAILY #30 patch SUMAtriptan SUCCINATE [Imitrex] 50 mg PO ONCE PRN #30 tab PRN Reason: headache methylPREDNISolone Dose Pack [Medrol Dose Pack] See Taper PO DAILY #21 tab traZODone HCL [Desyrel] 100 mg PO HS #30 tab Discharge Medication List Montelukast Sodium [Singulair] 10 mg PO DAILY 04/06/14 [History] Omeprazole [PriLOSEC] 20 mg PO AC-BRKFST 04/06/14 [History] amLODIPine [Norvasc] 10 mg PO DAILY 04/06/14 [History] Albuterol Inhaler [Ventolin Hfa Inhaler] 2 puff INHALATION RT-QID PRN 02/22/17 [ History] Flunisolide [Aerospan] 2 puff INHALATION RT-BID 02/22/17 [History] Umeclidinium [place] [Incruse Ellipta] 1 puff INHALATION RT-DAILY 02/22/17 [ History] Budesonide [Pulmicort] 0.5 mg INHALATION RT-BID #60 nebu 02/24/17 [Rx] HYDROcodone/APAP 10-325MG [Pillow 10-325] 1 each PO Q6H PRN #10 tab 02/24/17 [Rx] Ipratropium-Albuterol Nebulize [Duoneb 0.5 mg-3 mg/3 ml Soln] 3 ml INHALATION RT -QID #120 ampul.neb 02/24/17 [Rx] Nicotine 21Mg/24Hr Patch [Habitrol] 1 patch TRANSDERM DAILY #30 patch 02/24/17 [ Rx] SUMAtriptan SUCCINATE [Imitrex] 50 mg PO ONCE PRN #30 tab 02/24/17 [Rx] methylPREDNISolone Dose Pack [Medrol Dose Pack] See Taper PO DAILY #21 tab 02/24 [Rx] traZODone HCL [Desyrel] 100 mg PO HS #30 tab 02/24/17 [Rx] Follow up Appointment(s)/Referral(s): Joaquin Kaiser MD [Primary Care Provider] - 1-2 days
[2017-02-24] MEDS ORDERED: IPRATROPIUM-ALBUTEROL 3 ML NEB INHALATION SCH (12:00)
[2017-02-24] MEDS ORDERED: methylPREDNISolone 4 MG TAB TAPER PO SCH (12:00)
[2017-02-24 12:12] LABS: Glucose,Whole Blood 101 mg/dL (75-99)
[2017-02-24 14:18] LABS: Hemoglobin A1C 5.6 % (4.2-6.1)
[2017-02-27 13:47] LABS: HCV Qualitative Result DETECTED (Not detected)
== END 2017-02-24 13:11 | disposition home or self-care (01) ==
LOC: EC 11:55 → 4MS4W 15:59 → INTOOBSV 15:59 → 4MS4W 17:10
PROVIDERS: ADMIT Internal Medicine; ATTEND Internal Medicine
DX: J44.1 Chronic obstructive pulmonary disease with (acute) exacerbation (principal); B18.2 Chronic viral hepatitis C; G47.00 Insomnia, unspecified; G43.909 Migraine, unspecified, not intractable, without status migrainosus; M47.812 Spondylosis without myelopathy or radiculopathy, cervical region; M41.9 Scoliosis, unspecified; G89.4 Chronic pain syndrome; Z91.19 Patient's noncompliance with other medical treatment and regimen; H90.3 Sensorineural hearing loss, bilateral; I10 Essential (primary) hypertension; E86.0 Dehydration; F12.90 Cannabis use, unspecified, uncomplicated; F17.210 Nicotine dependence, cigarettes, uncomplicated; F41.9 Anxiety disorder, unspecified; K21.9 Gastro-esophageal reflux disease without esophagitis; M19.90 Unspecified osteoarthritis, unspecified site; M46.94 Unspecified inflammatory spondylopathy, thoracic region; Z79.899 Other long term (current) drug therapy; Z86.14 Personal history of Methicillin resistant Staphylococcus aureus infection; Z88.5 Allergy status to narcotic agent; Z91.81 History of falling; J98.11 Atelectasis; J01.90 Acute sinusitis, unspecified
CPT/HCPCS: 96361 ×3; 96365; 96366; 96376; 96375; 99291; 36415; 94640 ×4; 93005; 83880; 87522; 80053; 80048; 80076; 87902; 83036; 82550; 82553; 84484; 85025 ×2; 85610; 85730; 81003; 87040; 87070; 87205; 71020; 72072; 76700; 70450; 71275; G0378 ×3; S4990 ×2; J7509 ×2; J1644 ×3; J2930 ×3; Q9967; J2405; J0696 ×2; J1170; 96374

== ENCOUNTER → 2018-02-07 | Outpatient (CLI) | payer OTHER ==
[2018-02-07 09:03] LABS: Basophils % (A) 0 %; Eosinophils # (A) 0.1 k/uL (0-0.7); Eosinophils % (A) 1 %; HCT 52.2 % (39.0-53.0); HGB 16.3 gm/dL (13.0-17.5); Lymphocytes # (A) 2.4 k/uL (1.0-4.8); Lymphocytes % (A) 24 %; MCH 28.7 pg (25.0-35.0); MCHC 31.1 g/dL (31.0-37.0); MCV 92.1 fL (80.0-100.0); Mean Platelet Volume 7.9; Monocytes # (A) 0.7 k/uL (0-1.0); Monocytes % (A) 7 %; Neutrophils # (A) 6.7 k/uL (1.3-7.7); Neutrophils % (A) 67 %; Platelet Count 304 k/uL (150-450); RBC 5.67 m/uL (4.30-5.90); RDW 13.3 % (11.5-15.5); WBC 10.1 k/uL (3.8-10.6)
[2018-02-07 10:45] LABS: Erythrocyte Sedimentation Rate 2 mm/hr (0-15)
[2018-02-07 10:56] LABS: ALT 69 U/L (21-72); AST 36 U/L (17-59); Albumin 3.9 g/dL (3.5-5.0); Alkaline Phosphatase 69 U/L (38-126); Anion Gap 9 mmol/L; Bilirubin, Delta 0.4 mg/dL (0.0-0.2); Bilirubin,Unconjugated 0.1 mg/dL (0.0-1.1); Blood Urea Nitrogen 20 mg/dL (9-20); C Reactive Protein 7.1 mg/L (<10.0); Calcium 9.5 mg/dL (8.4-10.2); Carbon Dioxide 29 mmol/L (22-30); Chloride 104 mmol/L (98-107); Cholesterol 161 mg/dL (<200); Creatine Kinase 49 U/L (55-170); Glucose 106 mg/dL (74-99); HDL Cholesterol 67 mg/dL (40-60); LDL Cholesterol,Calculated 82 mg/dL (0-99); Magnesium 2.2 mg/dL (1.6-2.3); Potassium 4.7 mmol/L (3.5-5.1); Sodium 142 mmol/L (137-145); Total Bilirubin 0.5 mg/dL (0.2-1.3); Total Protein 6.9 g/dL (6.3-8.2); Triglycerides 61 mg/dL (<150)
[2018-02-07 11:22] LABS: Prostate Specific Antigen 0.26 ng/mL (0.00-4.00)
[2018-02-07 16:41] LABS: Vitamin D 25 Hydroxy 21.2 ng/mL (30.0-100.0)
[2018-02-10 09:55] LABS: Hepatits C Virus RNA DETECTED (Not detected); LOG HCV IU/mL 5.89 (<1.08)
== END | disposition home or self-care (01) ==
LOC: LABWHC1 08:25
PROVIDERS: ATTEND Physician Assistant
DX: B18.2 Chronic viral hepatitis C (principal); J44.9 Chronic obstructive pulmonary disease, unspecified; N40.0 Benign prostatic hyperplasia without lower urinary tract symptoms; E55.9 Vitamin D deficiency, unspecified; E53.8 Deficiency of other specified B group vitamins; R25.2 Cramp and spasm
CPT/HCPCS: 36415; 80053; 80061; 82248; 82306; 82550; 82607; 83735; 84153; 85025; 85652; 86140; 87522

== ENCOUNTER → 2018-06-03 | Outpatient (CLI) | payer OTHER ==
[2018-06-03 13:45] LABS: Basophils % (A) 0 %; Eosinophils # (A) 0.2 k/uL (0-0.7); Eosinophils % (A) 2 %; HCT 48.1 % (39.0-53.0); HGB 15.7 gm/dL (13.0-17.5); Lymphocytes # (A) 2.2 k/uL (1.0-4.8); Lymphocytes % (A) 26 %; MCH 30.1 pg (25.0-35.0); MCHC 32.7 g/dL (31.0-37.0); MCV 91.9 fL (80.0-100.0); Mean Platelet Volume 7.1; Monocytes # (A) 0.5 k/uL (0-1.0); Monocytes % (A) 6 %; Neutrophils # (A) 5.4 k/uL (1.3-7.7); Neutrophils % (A) 64 %; Platelet Count 288 k/uL (150-450); RBC 5.23 m/uL (4.30-5.90); WBC 8.5 k/uL (3.8-10.6)
[2018-06-03 13:56] LABS: Albumin 4.1 g/dL (3.5-5.0); Bilirubin, Delta 0.1 mg/dL (0.0-0.2); Total Bilirubin 0.1 mg/dL (0.2-1.3); Uric Acid 4.3 mg/dL (3.5-8.5)
[2018-06-03 14:49] LABS: Erythrocyte Sedimentation Rate 6 mm/hr (0-15)
[2018-06-04 14:56] LABS: Hepatits C Virus RNA Not detected (Not detected); Hepatits C Virus RNA, Quant <12 IU/mL (<12); LOG HCV IU/mL <1.08 (<1.08)
== END | disposition home or self-care (01) ==
LOC: LABWHC1 13:00
PROVIDERS: ATTEND Internal Medicine
DX: B18.2 Chronic viral hepatitis C (principal); M25.562 Pain in left knee; M35.9 Systemic involvement of connective tissue, unspecified
CPT/HCPCS: 36415; 80076; 84550; 85025; 85652; 86038; 87522

== ENCOUNTER → 2018-06-04 | Outpatient (CLI) | payer OTHER ==
--- NOTE | 2018-06-04 15:11 | XR ---
EXAMINATION TYPE: XR knee complete LT DATE OF EXAM: 06/04/2018 CLINICAL HISTORY: Left knee pain TECHNIQUE: Three views of the left knee are obtained. COMPARISON: None. FINDINGS: There is no acute fracture/dislocation evident in left knee. There is mild to moderate tri compartment joint space loss with mild spurring patellofemoral compartment. Increased density suprapa tellar bursa is suspicious for moderate size joint effusion. IMPRESSION: As above.
== END | disposition home or self-care (01) ==
LOC: RADXRMAIN 14:39
PROVIDERS: ATTEND Internal Medicine
DX: M25.562 Pain in left knee (principal)

== ENCOUNTER 2018-10-23 15:40 | Emergency (ER) | payer OTHER ==
[2018-10-23] MEDS ORDERED: IBUPROFEN 600 MG TAB PO STA (16:30)
--- NOTE | 2018-10-23 16:33 | ED ---
General Adult HPI - General Chief complaint: Extremity Problem,Nontraumatic Stated complaint: Knee Pain, Confused Time Seen by Provider: 10/23/18 15:50 Source: patient, RN notes reviewed Mode of arrival: wheelchair Limitations: no limitations - History of Present Illness Initial comments: 1-year-old [id number] male with a past medical history of osteoarthritis, COPD, hypertension, chronic hepatitis C presents to the emergency determine for a chief complaint of left knee pain times months. Patient states has been consistent for the past few months. Patient states it is painful to walk on. Patient states Motrin makes the pain better. Patient has not followed up outpatient for this pain. Patient's daughter states that he has seemed confused over the past few days. However patient is refusing any other workup. He states he is only here for his knee. Patient is demonstrating decision making capability and is alert and oriented. Patient has no other complaints at this time including shortness of breath, chest pain, abdominal pain, nausea or vomiting, headache, or visual changes. - Related Data Home Medications Medication Instructions Recorded Confirmed Montelukast Sodium [Singulair] 10 mg PO DAILY 04/06/14 10/23/18 Omeprazole [PriLOSEC] 20 mg PO AC-BRKFST 04/06/14 10/23/18 Albuterol Inhaler [Ventolin Hfa 2 puff INHALATION RT-QID PRN 02/22/17 10/23/18 Inhaler] Umeclidinium [place] [Incruse 1 puff INHALATION RT-DAILY 02/22/17 10/23/18 Ellipta] Budesonide/Formoterol Fumarate 2 puff INHALATION RT-BID 10/23/18 10/23/18 [Symbicort 80-4.5 Mcg Inhaler] Cholecalciferol [Vitamin D3] 2,000 unit PO DAILY 10/23/18 10/23/18 Ibuprofen [Motrin] 800 mg PO BID PRN 10/23/18 10/23/18 Ipratropium-Albuterol Nebulize 3 ml INHALATION RT-QID PRN 10/23/18 10/23/18 [Duoneb 0.5 mg-3 mg/3 ml Soln] Lisinopril [Zestril] 5 mg PO DAILY 10/23/18 10/23/18 Nicotine 14Mg/24Hr Patch [Habitrol 1 patch TRANSDERM DAILY 10/23/18 10/23/18 14Mg/24Hr Patch] Previous Rx's Medication Instructions Recorded traZODone HCL [Desyrel] 100 mg PO HS #30 tab 02/24/17 Ibuprofen [Motrin] 600 mg PO Q8HR PRN #20 tab 10/23/18 Allergies Allergy/AdvReac Type Severity Reaction Status Date / Time morphine AdvReac Itching Verified 10/23/18 15:45 Review of Systems ROS Statement: Those systems with pertinent positive or pertinent negative responses have been documented in the HPI. ROS Other: All systems not noted in ROS Statement are negative. Past Medical History Past Medical History: Chest Pain / Angina, COPD, GERD/Reflux, Hypertension, Liver Disease, Osteoarthritis (OA), Pneumonia, Vascular Disorder Additional Past Medical History / Comment(s): hearing loss bilateral ears, diverticulitis, Chronic Hepatits C-stated on a waiting list for tx, arthritis, chronic back pain, fracture left foot NEVER HAD SX- ANKLE NOT STABLE, right leg , ribs, and right arm due to injury, scoliosis RUPTURED DISC, SEASONAL ALLERGIES , "dizzy spells alst 3 days" History of Any Multi-Drug Resistant Organisms: MRSA Date of last positivie culture/infection: 2002 MDRO Source:: left hand wound Additional Past Surgical History / Comment(s): liver bx( found hep c), bilateral hand surgery-tendon repair, left arm repair of severed arteries and tendons, Past Anesthesia/Blood Transfusion Reactions: No Reported Reaction Past Psychological History: Anxiety Smoking Status: Current every day smoker Past Alcohol Use History: None Reported Past Drug Use History: Marijuana - Past Family History Father Family Medical History: Cancer General Exam Limitations: no limitations General appearance: alert, in no apparent distress Head exam: Present: atraumatic, normocephalic, normal inspection Eye exam: Present: normal appearance, PERRL, EOMI. Absent: scleral icterus, conjunctival injection, periorbital swelling ENT exam: Present: normal exam, mucous membranes moist Neck exam: Present: normal inspection, full ROM. Absent: tenderness, meningismus, lymphadenopathy Respiratory exam: Present: normal lung sounds bilaterally. Absent: respiratory distress, wheezes, rales, rhonchi, stridor Cardiovascular Exam: Present: regular rate Extremities exam: Present: tenderness (tenderness noted to the anterior aspect of the left knee), normal capillary refill (Capillary refill less than 2 seconds and DP pulse 2+ in the left lower extremity), joint swelling (Mild edema without significant erythema or warmth noted to the left anterior knee. ) . Absent: full ROM (Patient has about 100 of flexion of the left knee, full extension), calf tenderness (No tenderness to the calf) Neurological exam: Present: alert, oriented X3, CN II-XII intact Psychiatric exam: Present: normal affect, normal mood Course Vital Signs 10/23/18 10/23/18 15:43 17:48 Temperature 97.9 F 97.8 F Pulse Rate 81 61 Respiratory 16 14 Rate Blood Pressure 138/93 120/84 O2 Sat by Pulse 96 94 L Oximetry Medical Decision Making - Medical Decision Making 58-year-old male presents to the emergency department for a chief complaint of left knee pain 3 months. Patient states this worsened in the past month. He also admits to falling on a stair a few days ago and injuring the left knee. He states he would like an MRI of the knee completed. He denies fevers or chills. Patient has 100 flexion of the left knee full extension. There is mild edema noted to the anterior left knee without significant erythema or warmth. Neurovascular intact in the left lower extremity. X-ray of the left knee shows no fracture. Soft tissues are unremarkable. There is osteophyte spurring noted in the lateral and anterior compartments consistent with osteoarthritis. At this time it is felt patient can follow up outpatient with NSAID. Patient agrees with this. He will follow up with his primary care. He will return here for any worsening symptoms. Dr. Rico also visualized the knee and agrees with this treatment plan. Disposition Clinical Impression: Knee pain, left Disposition: HOME SELF-CARE Condition: Good Instructions: Knee Pain (ED) Additional Instructions: Take motrin and tylenol for pain. Use crutches as needed. Follow up with primary care and orthopedics in 1-2 days. Return to the ED if you have any worsening symptoms. Prescriptions: Ibuprofen [Motrin] 600 mg PO Q8HR PRN #20 tab PRN Reason: Pain Is patient prescribed a controlled substance at d/c from ED?: No Referrals: Joaquin Kaiser MD [Primary Care Provider] - 1-2 days Saurabh Rice MD [STAFF PHYSICIAN] - 1-2 days Time of Disposition: 18:00
--- NOTE | 2018-10-23 17:11 | XR ---
PROCEDURE: XR knee complete LT - 3V DATE AND TIME: 10/23/2018 4:53 PM CLINICAL INDICATION: PHH; Pain and swelling for 2 months TECHNIQUE: Department protocol COMPARISON: 06/04/2018 FINDINGS: There is no fracture or malalignment. The soft tissues are unremarkable. Osteophytic spurring is noted in the lateral and anterior compartments, mild/moderate degree, consist ent with osteoarthritis. IMPRESSION: NO ACUTE PROCESS.
[2018-10-23 17:52] VITALS: BP 120/84; PULSE 61; RESP 14; TEMP 97.8
== END 2018-10-23 18:40 | disposition home or self-care (01) ==
LOC: EC 15:40
DX: M25.562 Pain in left knee (principal); R41.0 Disorientation, unspecified; R60.0 Localized edema; J44.9 Chronic obstructive pulmonary disease, unspecified; K21.9 Gastro-esophageal reflux disease without esophagitis; I10 Essential (primary) hypertension; M19.90 Unspecified osteoarthritis, unspecified site; F41.9 Anxiety disorder, unspecified; F17.200 Nicotine dependence, unspecified, uncomplicated; Z86.14 Personal history of Methicillin resistant Staphylococcus aureus infection; Z86.19 Personal history of other infectious and parasitic diseases; Z79.51 Long term (current) use of inhaled steroids; Z79.899 Other long term (current) drug therapy; Z88.5 Allergy status to narcotic agent
CPT/HCPCS: 99283

== ENCOUNTER 2018-11-08 02:16 | Inpatient (IN) | payer OTHER ==
[~2018-11-08 02:16] MED LIST: ceFAZolin IN SWFI 2 GM/20 ML SYRINGE IVP ONE
[2018-11-08] MEDS ORDERED: HYDROmorphone 1 MG/ML 1 ML SYRINGE IVP STA ×2 (02:35→03:19)
[2018-11-08] MEDS ORDERED: NALOXONE 0.4 MG/ML 1 ML VIAL IV PRN ×2 (03:20→18:04)
[2018-11-08] MEDS ORDERED: ONDANSETRON 4 MG/2 ML VIAL IVP PRN (03:20)
[2018-11-08] MEDS ORDERED: SODIUM CHLORIDE 0.9% 1,000 ML IV STA (03:20)
[2018-11-08] MEDS ORDERED: SODIUM CHLORIDE 0.9% 500 ML 500 ML IV STA (03:20)
[2018-11-08] MEDS ORDERED: HYDROmorphone 0.5 MG/0.5 ML SYRINGE IVP PRN ×2 (03:20→18:04)
[2018-11-08 03:22] LABS: Basophils % (A) 0 %; Eosinophils # (A) 0.1 k/uL (0-0.7); Eosinophils % (A) 1 %; HCT 37.7 % (39.0-53.0); HGB 12.3 gm/dL (13.0-17.5); Lymphocytes # (A) 1.5 k/uL (1.0-4.8); Lymphocytes % (A) 11 %; MCH 28.8 pg (25.0-35.0); MCHC 32.7 g/dL (31.0-37.0); MCV 87.9 fL (80.0-100.0); Mean Platelet Volume 7.8; Monocytes # (A) 0.8 k/uL (0-1.0); Monocytes % (A) 6 %; Neutrophils # (A) 10.8 k/uL (1.3-7.7); Neutrophils % (A) 81 %; Platelet Count 376 k/uL (150-450); Poikilocytosis Slight; RBC 4.29 m/uL (4.30-5.90); RDW 14.3 % (11.5-15.5); WBC 13.5 k/uL (3.8-10.6)
[2018-11-08] MEDS ORDERED: IPRATROPIUM-ALBUTEROL 3 ML NEB INHALATION PRN (03:23)
--- NOTE | 2018-11-08 03:24 | XR ---
EXAMINATION TYPE: XR femur RT DATE OF EXAM: 11/08/2018 COMPARISON: NONE HISTORY: Pain. Fall. TECHNIQUE: 5 views FINDINGS: There is an acute oblique fracture of the subtrochanteric right femur. There is no dislocat ion. There is 100% offset of the fragments. Knee joint is intact. IMPRESSION: Acute displaced subtrochanteric fracture right femur.
--- NOTE | 2018-11-08 03:24 | ED ---
Fall HPI - General Chief Complaint: Fall Stated Complaint: Fall, Hip Fracture Time Seen by Provider: 11/08/18 02:35 Source: EMS Mode of arrival: EMS - History of Present Illness Initial Comments: This patient is a 58-year-old man who presents to be evaluated after he had a fall. The patient states that he believes he may have been sleepwalking, as he does have a history of doing this. He had been staying at a friend's home and then states that he ended up falling down a few stairs onto a cement floor. He states he had severe pain to the proximal right thigh area and he was not able to get up. The patient denies any other injury. He denies any head or neck injury. No back injury. No chest or abdomen injury. He denies weakness or numbness of the foot or leg. MD Complaint: fall -: minutes(s) Fall From: standing When Fall Occurred: just prior to arrival Place Fall Occurred: home, other (Friend's home) Loss of Consciousness: none Prolonged Down Time?: no Symptoms Prior to Fall: none Location - Extremities: Right: Thigh Severity: severe Quality: sharp Associated Symptoms: denies - Related Data Home Medications Medication Instructions Recorded Confirmed Montelukast Sodium [Singulair] 10 mg PO DAILY 04/06/14 10/23/18 Omeprazole [PriLOSEC] 20 mg PO AC-BRKFST 04/06/14 10/23/18 Albuterol Inhaler [Ventolin Hfa 2 puff INHALATION RT-QID PRN 02/22/17 10/23/18 Inhaler] Umeclidinium [place] [Incruse 1 puff INHALATION RT-DAILY 02/22/17 10/23/18 Ellipta] Budesonide/Formoterol Fumarate 2 puff INHALATION RT-BID 10/23/18 10/23/18 [Symbicort 80-4.5 Mcg Inhaler] Cholecalciferol [Vitamin D3] 2,000 unit PO DAILY 10/23/18 10/23/18 Ibuprofen [Motrin] 800 mg PO BID PRN 10/23/18 10/23/18 Ipratropium-Albuterol Nebulize 3 ml INHALATION RT-QID PRN 10/23/18 10/23/18 [Duoneb 0.5 mg-3 mg/3 ml Soln] Lisinopril [Zestril] 5 mg PO DAILY 10/23/18 10/23/18 Nicotine 14Mg/24Hr Patch [Habitrol 1 patch TRANSDERM DAILY 10/23/18 10/23/18 14Mg/24Hr Patch] Previous Rx's Medication Instructions Recorded traZODone HCL [Desyrel] 100 mg PO HS #30 tab 02/24/17 Ibuprofen [Motrin] 600 mg PO Q8HR PRN #20 tab 10/23/18 Allergies Allergy/AdvReac Type Severity Reaction Status Date / Time morphine AdvReac Itching Verified 11/08/18 02:22 Review of Systems ROS Statement: Those systems with pertinent positive or pertinent negative responses have been documented in the HPI. ROS Other: All systems not noted in ROS Statement are negative. Constitutional: Denies: fever Respiratory: Denies: cough, dyspnea Cardiovascular: Denies: chest pain, palpitations, syncope Gastrointestinal: Denies: abdominal pain Musculoskeletal: Reports: as per HPI, joint swelling (Right hip). Denies: back pain Skin: Denies: lesions Neurological: Denies: headache, weakness, numbness, paresthesias Hematological/Lymphatic: Denies: easy bleeding Past Medical History Past Medical History: Chest Pain / Angina, COPD, GERD/Reflux, Hypertension, Liver Disease, Osteoarthritis (OA), Pneumonia, Vascular Disorder Additional Past Medical History / Comment(s): hearing loss bilateral ears, diverticulitis, Chronic Hepatits C-stated on a waiting list for tx, arthritis, chronic back pain, fracture left foot NEVER HAD SX- ANKLE NOT STABLE, right leg , ribs, and right arm due to injury, scoliosis RUPTURED DISC, SEASONAL ALLERGIES , "dizzy spells alst 3 days" History of Any Multi-Drug Resistant Organisms: MRSA Date of last positivie culture/infection: 2002 MDRO Source:: left hand wound Additional Past Surgical History / Comment(s): liver bx( found hep c), bilateral hand surgery-tendon repair, left arm repair of severed arteries and tendons, Past Anesthesia/Blood Transfusion Reactions: No Reported Reaction Past Psychological History: Anxiety Smoking Status: Current every day smoker Past Alcohol Use History: None Reported Past Drug Use History: Marijuana - Past Family History Father Family Medical History: Cancer General Exam Limitations: no limitations General appearance: alert, in distress (Due to leg pain) Head exam: Present: atraumatic, normocephalic Eye exam: Present: normal appearance, PERRL, EOMI. Absent: scleral icterus, conjunctival injection, nystagmus ENT exam: Present: normal oropharynx Neck exam: Present: normal inspection, full ROM. Absent: tenderness Respiratory exam: Present: normal lung sounds bilaterally. Absent: respiratory distress, wheezes, rales, rhonchi, stridor, chest wall tenderness Cardiovascular Exam: Present: normal rhythm, bradycardia (Rate approximately 56 bpm), normal heart sounds. Absent: systolic murmur, diastolic murmur, rubs, gallop GI/Abdominal exam: Present: soft. Absent: distended, tenderness, guarding, rebound, rigid, mass Extremities exam: Present: tenderness (Proximal right femur), normal capillary refill, other (The patient does have shortening of the right leg, and obvious deformity at the proximal femur.). Absent: full ROM, pedal edema, calf tenderness Back exam: Absent: CVA tenderness (R), CVA tenderness (L), vertebral tenderness Neurological exam: Present: alert, oriented X3. Absent: motor sensory deficit Skin exam: Present: warm, dry, intact, normal color. Absent: rash Course Vital Signs 11/08/18 11/08/18 02:19 03:29 Temperature 97.9 F Pulse Rate 50 L 50 L Respiratory 18 18 Rate Blood Pressure 138/89 120/65 O2 Sat by Pulse 100 100 Oximetry Medical Decision Making - Medical Decision Making This patient is a 58-year-old man presenting by ambulance after right proximal femur fracture. Case discussed with Mikel Agarwal, requests patient be admitted and requests medical consult. I discussed medical care with the patient, who states that he does not see Dr. Frank Gilliland anymore, though he is listed as patient's primary physician. The patient is refusing contact with this physician. Therefore at the moment the consultations under medical on-call. - Lab Data Result diagrams: 11/08/18 03:10 Lab Results 11/08/18 Range/Units 03:10 WBC 13.5 H (3.8-10.6) k/uL RBC 4.29 L (4.30-5.90) m/uL Hgb 12.3 L (13.0-17.5) gm/dL Hct 37.7 L (39.0-53.0) % MCV 87.9 (80.0-100.0) fL MCH 28.8 (25.0-35.0) pg MCHC 32.7 (31.0-37.0) g/dL RDW 14.3 (11.5-15.5) % Plt Count 376 (150-450) k/uL Neutrophils % 81 % Lymphocytes % 11 % Monocytes % 6 % Eosinophils % 1 % Basophils % 0 % Neutrophils # 10.8 H (1.3-7.7) k/uL Lymphocytes # 1.5 (1.0-4.8) k/uL Monocytes # 0.8 (0-1.0) k/uL Eosinophils # 0.1 (0-0.7) k/uL Basophils # 0.0 (0-0.2) k/uL Poikilocytosis Slight - EKG Data -: EKG Interpreted by Nh EKG shows normal: sinus rhythm (With sinus arrhythmia, rate 60 bpm), axis ( Normal), intervals (Normal), QRS complexes (Normal), ST-T waves (Normal) Rate: normal (Normal) Interpretation: normal EKG Disposition Clinical Impression: Fall, Right femoral shaft fracture Disposition: ADMITTED IP TO THIS [facility] Condition: Fair Referrals: Joaquin Kaiser MD [Primary Care Provider] - 1-2 days
--- NOTE | 2018-11-08 03:25 | XR ---
EXAMINATION TYPE: XR chest 1V DATE OF EXAM: 11/08/2018 COMPARISON: 02/22/2017 HISTORY: Chest pain TECHNIQUE: Single frontal view of the chest is obtained. FINDINGS: There is no heart failure nor confluent pneumonic infiltrate. Costophrenic angles are cierra r. Bony thorax is intact. IMPRESSION: No active cardiopulmonary disease. Normal heart. No adverse change compared to old exam.
[2018-11-08 04:05] LABS: Anion Gap 8 mmol/L; Blood Urea Nitrogen 23 mg/dL (9-20); Calcium 12.5 mg/dL (8.4-10.2); Carbon Dioxide 20 mmol/L (22-30); Chloride 116 mmol/L (98-107); Glucose 127 mg/dL (74-99); Sodium 144 mmol/L (137-145)
[2018-11-08 04:27] LABS: Prothrombin Time 10.9 sec (9.0-12.0)
[2018-11-08 04:29] LABS: Partial Thromboplastin Time 20.2 sec (22.0-30.0)
[2018-11-08 04:48] VITALS: BMI 22.4
[2018-11-08] MEDS: HYDROmorphone 1 MG/ML 1 ML SYRINGE IVP PRN ×5 (06:07→19:36)
--- NOTE | 2018-11-08 08:55 | P.HPOR ---
History of Present Illness H&P Date: 11/08/18 Chief Complaint: Right thigh pain status post fall Patient is 58-year-old man who presented to the emergency room overnight after sustaining a fall at home. He actually lives in a group type home on [address] and does not have a specific permanent residence. He says that he must have been walking in his sleep overnight when he fell. He does not know best this injury but he woke up on the ground with severe pain at his right proximal femur. He denies any loss of consciousness. Denies any chest pain or shortness breath. Denies any fevers chills or night sweats. He says he has a history of emphysema. He denies any other medical history. He says he is normally a community and later without any assistance. He denies any changes in bowel bladder function. Denies any other prior problems in his right leg. Review of Systems As stated in HPI. Denies any loss of consciousness or neck pain. Denies any other injuries. He says that he is chronic left knee pain but his right thigh pain is new for him. Past Medical History Past Medical History: Chest Pain / Angina, COPD, GERD/Reflux, Hypertension, Liver Disease, Osteoarthritis (OA), Pneumonia, Vascular Disorder Additional Past Medical History / Comment(s): hearing loss bilateral ears, diverticulitis, Chronic Hepatits C-stated on a waiting list for tx, arthritis, chronic back pain, fracture left foot NEVER HAD SX- ANKLE NOT STABLE, right leg , ribs, and right arm due to injury, scoliosis RUPTURED DISC, SEASONAL ALLERGIES , "dizzy spells alst 3 days" History of Any Multi-Drug Resistant Organisms: MRSA Date of last positivie culture/infection: 2002 MDRO Source:: left hand wound Additional Past Surgical History / Comment(s): liver bx( found hep c), bilateral hand surgery-tendon repair, left arm repair of severed arteries and tendons, Past Anesthesia/Blood Transfusion Reactions: No Reported Reaction Past Psychological History: Anxiety Smoking Status: Current every day smoker Past Alcohol Use History: None Reported Additional Past Alcohol Use History / Comment(s): started smoking at age 8- currently 1-2 packs per day. past heacvy etoh quit 3 years ago. Past Drug Use History: Marijuana Additional Drug Use History / Comment(s): quit marijuana 1 year ago - Past Family History Father Family Medical History: Cancer Medications and Allergies Home Medications Medication Instructions Recorded Confirmed Type Montelukast Sodium [Singulair] 10 mg PO DAILY 04/06/14 11/08/18 History Omeprazole [PriLOSEC] 20 mg PO AC-BRKFST 04/06/14 11/08/18 History Albuterol Inhaler [Ventolin Hfa 2 puff INHALATION RT-QID PRN 02/22/17 11/08/18 History Inhaler] Umeclidinium [place] [Incruse 1 puff INHALATION RT-DAILY 02/22/17 11/08/18 History Ellipta] traZODone HCL [Desyrel] 100 mg PO HS #30 tab 02/24/17 11/08/18 Rx Budesonide/Formoterol Fumarate 2 puff INHALATION RT-BID 10/23/18 11/08/18 History [Symbicort 80-4.5 Mcg Inhaler] Cholecalciferol [Vitamin D3] 2,000 unit PO DAILY 10/23/18 11/08/18 History Ibuprofen [Motrin] 600 mg PO Q8HR PRN #20 tab 10/23/18 11/08/18 Rx Ibuprofen [Motrin] 800 mg PO BID PRN 10/23/18 11/08/18 History Ipratropium-Albuterol Nebulize 3 ml INHALATION RT-QID PRN 10/23/18 11/08/18 History [Duoneb 0.5 mg-3 mg/3 ml Soln] Lisinopril [Zestril] 5 mg PO DAILY 10/23/18 11/08/18 History Nicotine 14Mg/24Hr Patch [Habitrol 1 patch TRANSDERM DAILY 10/23/18 11/08/18 History 14Mg/24Hr Patch] Allergies Allergy/AdvReac Type Severity Reaction Status Date / Time morphine AdvReac Itching Verified 11/08/18 07:43 Physical Examination Osteopathic Statement: *. No significant issues noted on an osteopathic structural exam other than those noted in the History and Physical/Consult. - Hip right Gait: other (He is unable to mobilize in bed he is unable to ambulate or get up. He has severe pain at his right leg. His pain over his thigh. He has pain with internal/external rotation is right leg. He has good motion intact his ankle foot and toes bilaterally his left lower extremity does not have any pain with active best range motion he is a small abrasion over his proximal over his knee on the left. His back is nontender his upper extremity is in full active best range motion in his neck and head are nontender palpation range of motion) Results - Labs Labs: Abnormal Lab Results - Last 24 Hours (Table) 11/08/18 11/08/18 11/08/18 Range/Units 03:10 03:30 03:45 WBC 13.5 H (3.8-10.6) k/uL RBC 4.29 L (4.30-5.90) m/uL Hgb 12.3 L (13.0-17.5) gm/dL Hct 37.7 L (39.0-53.0) % Neutrophils # 10.8 H (1.3-7.7) k/uL APTT 20.2 L (22.0-30.0) sec Potassium 3.0 L (3.5-5.1) mmol/L Chloride 116 H (98-107) mmol/L Carbon Dioxide 20 L (22-30) mmol/L BUN 23 H (9-20) mg/dL Glucose 127 H (74-99) mg/dL Calcium 12.5 H (8.4-10.2) mg/dL H & H 11/08/18 Range/Units 03:10 Hgb 12.3 L (13.0-17.5) gm/dL Hct 37.7 L (39.0-53.0) % Coagulation 11/08/18 Range/Units 03:30 INR 1.0 (<1.2) Result Diagrams: 11/08/18 03:10 11/08/18 03:45 - Diagnostic results Hip x-ray: report reviewed, image reviewed (X-rays of his right femur show a separate trochanteric comminuted oblique spiral proximal femur fracture with displacement. There is no obvious masses or bony erosion.) Assessment and Plan Assessment: Acute right proximal femur/subtrochanteric comminuted spiral femur fracture due to a fall Inability and leg due to fracture Plan: Acute right proximal femur/subtrochanteric comminuted spiral femur fracture due to a fall Inability and leg due to fracture The patient has an acute right proximal femur fracture with subtrochanteric extension which is displaced and angulated. I think the best chance for him to be able to mobilize would be to undergo surgical intervention for fixation and stabilization. Even with this this will be a significant injury for him and has potential greatly limiting his overall mobility. The fracture will take some time to heal and he will be nonweightbearing as this fracture heals. I think the best surgical option would be to perform an intramedullary rodding of his right femur for surgical stabilization. We discussed the nature of this injury with him we discussed various treatment options. He is unable to mobilize and I do not think that conservative treatment would be reasonable option. We discussed surgery and the risks, occasions alternatives benefits of his injury and surgical intervention. We discussed the risk of bleeding risk of infection risk and need for further surgery risk of decreased loss of motion loss of function malunion nonunion hardware failure nerve damage risks of surgery as well as the fact that surgery may not alleviate his symptoms was explained. I answered all his questions best of our ability and leg which that he can understand and he is agreeable to proceed with surgical intervention. We will keep him nothing by mouth today and await ankle evaluation and clearance. We will plan for surgical intervention for right femur intramedullary franky fixation today.
[2018-11-08] MEDS ORDERED: NICOTINE 21MG/24HR PATCH TRANSDERM SCH (09:00)
[2018-11-08] MEDS: SYMBICORT 80-4.5 MCG INHALER INHALATION SCH ×2 (09:03→20:54)
[2018-11-08] MEDS ORDERED: Potassium Replacement Protocol 1 EACH MISC MISCELLANE PRN (10:31)
[2018-11-08] MEDS: PANTOPRAZOLE 40 MG TABLET PO SCH (10:45)
[2018-11-08] MEDS: LISINOPRIL 5 MG TAB PO SCH (10:46)
[2018-11-08] MEDS: MONTELUKAST 10 MG TAB PO SCH (10:46)
[2018-11-08] MEDS: POTASSIUM CHLORIDE 10 MEQ in WATER FOR INJECTION 1 100ML.BAG IVPB SCH ×5 (12:09→16:14)
--- NOTE | 2018-11-08 14:33 | CONS ---
CONSULTATION CHIEF COMPLAINT: Fall with fracture of the right hip. HISTORY OF PRESENT ILLNESS: This is the first known admission for this 58-year-old white male. He fell at home. He denies intoxication, syncope, chest pain, neurologic deficits, etc. REVIEW OF SYSTEMS: He has had no headaches, neurologic deficits, CVAs, TIAs, change in vision hearing, chest pain, cough, hemoptysis, heart disease, murmurs, rheumatic fever, hypertension, orthopnea, PND, abdominal pain, nausea, vomiting, hematemesis, melena, hematochezia, jaundice, hepatitis, cirrhosis, hematuria, frequency, urgency, renal disease, etc. He is not adiabetic. PAST MEDICAL HISTORY: Past medical history, family history and personal and social histories reveal that he is ALLERGIC TO MORPHINE. The only surgery he has had is a procedure on his left arm where he had a laceration. MEDICATIONS: Medications include albuterol inhaler, vitamin D3, ibuprofen, Symbicort, lisinopril, , nicotine patch, omeprazole, and trazodone. He also uses an Ellipta inhaler. SOCIAL HISTORY: He states he is down to smoking a half pack cigarettes a day and denies drinking alcohol. PHYSICAL EXAMINATION: Blood pressure is 138/89 with a pulse of 50, respirations of 18. He is afebrile. GENERAL: He appeared to be slender, somewhat disheveled and in no acute distress. Skin color is normal. Skin is warm, dry. Lymph nodes are not enlarged. Head, ears, eyes, nose, mouth, and throat were normal. Neck veins are not distended. Chest is clear to auscultation and percussion. Cardiac exam demonstrates sinus rhythm and no murmurs or extra sounds. Abdomen is flat, soft without any masses or visceromegaly. Extremities are normal except for the hip. Neurologically he is intact. IMPRESSION: 1. Fracture of the right hip. 2. Chronic obstructive pulmonary disease. RECOMMENDATIONS: 1. Proceed with Surgery. He is cleared to be operated on today. 2. Follow blood pressure. 3. Continue on pulmonary program. MMODL / IJN: [id number] /
[2018-11-08] MEDS ORDERED: MIDAZOLAM 2 MG/2 ML VIAL ONE (16:10)
[2018-11-08] MEDS ORDERED: PROPOFOL 10 MG/ML 20 ML VIAL IV ONE (16:10)
[2018-11-08] MEDS ORDERED: ePHEDrine SULFATE/0.9% NACL/PF 50 MG/5 ML SYRINGE IV ONE (16:10)
[2018-11-08] MEDS ORDERED: PHENYLEPHRINE-0.9% NACL SYG 1 MG/10 ML SYRINGE ONE (16:10)
[2018-11-08] MEDS ORDERED: fentaNYL (PF) 50 MCG/ML 2 ML AMP ONE (16:10)
[2018-11-08] MEDS ORDERED: SODIUM CHLORIDE 0.9% 50 ML with ceFAZolin 2,000 MG IV ONE ×2 (16:14)
[2018-11-08] MEDS ORDERED: IV FLUID CONTINUATION 500 ML IV ONE ×2 (16:14)
[2018-11-08] MEDS ORDERED: ceFAZolin 1,000 MG in SODIUM CHLORIDE 0.9% 1,000 ML IRRIGATION ONE (17:01)
[2018-11-08] MEDS ORDERED: diphenhydrAMINE 50 MG/ML 1 ML VIAL IVP STA (17:58)
[2018-11-08] MEDS ORDERED: HYDROcodone/APAP 5-325MG 1 EACH TAB PO PRN (18:04)
[2018-11-08] MEDS ORDERED: MAGNESIUM HYDROXIDE 2,400 MG/10 ML CUP PO PRN ×2 (18:04)
[2018-11-08] MEDS ORDERED: BENZOCAINE/MENTHOL LOZENG 1 EACH LOZENGE MUCOUS MEM PRN (18:04)
[2018-11-08] MEDS ORDERED: LACTATED RINGERS 1,000 ML IV ONE ×2 (18:10)
--- NOTE | 2018-11-08 18:20 | P.OP ---
Date of Procedure: 11/08/18 Preoperative Diagnosis: right proximal femur shaft/subtrochanteric femur fracture , acute displaced and traumatic due to a fall Postoperative Diagnosis: same Anesthesia: spinal Pathology: other (femur reamings sent to pathology) Condition: stable Disposition: PACU Description of Procedure: Preoperative diagnosis: Subtrochanteric/proximal femur shaft right femoral fracture, acute traumatic Postoperative diagnosis: Same Procedure: IM rodding of Right femoral shaft/subtrochanteric femur fracture with hip screw placement Use of fluoroscopic guidance Closed reduction Surgeon: Dr. Bernadine Purit.: none Anesthesia:general per Dr Fletcher Estimated blood loss:approx 100cc Components implanted:Horn and New[employer] InterTAN femoral franky 360 mm x 11.5 with 90 mm lag screw and distal locking screw Disposition: To recovery room in good stable condition Operative indications The patient sustained a injury and suffered a fracture at the subtrochanteric proximal femoral shft area of her femur which was displaced and angulated. We were involved in the case in regard to his femur fracture. After evaluation it was determined that they would be a candidate for femur fracture internal fixation and stabilization via surgical intervention. This would give them the best chance of mobilization and ambulation. We discussed the range of treatment options from conservative to surgical. They elected proceed with surgical intervention. We answered their questions to the best of our ability healing which they can understand. They signed an informed consent. Operative summary After obtaining informed consent evaluation by anesthesia, preoperative evaluation and clearance for medical service, the patient was identified and prepped Flores area and the surgical site was marked. There brought to the operating room where the given appropriate anesthesia by the anesthesia department in standard fashion without any complications. Once the anesthesia was established we were able to position the patient. The patient was placed on a fracture table with a well-padded perineal post. The operative side was placed in a foot diaz stirrup which was well-padded well molded and placed in gentle in-line traction. The nonoperative leg was placed in a padded stirrup. C-arm was brought in and we performed a closed reduction technique at the femoral shaft. We are able to get good alignment good position of the intertrochanteric fracture with gentle reduction techniques and traction utilizing the fracture table. Once patient was well positioned lower extremity was prepped and draped in normal standard sterile fashion. An appropriate keystone protocol and timeout was completed and were able to proceed with surgery. He started point just proximal to the greater trochanter was established and a median incision approximately 2 inches in length approximately to the greater trochanter. I dissected down through the fascia and I was able to expose the tip of the greater trochanter. A sharp starting hole was established at the tip of the greater trochanter near the junction of the anterior and middle third. Positioning was confirmed with C-arm guidance. I was able to start the awl into the bone and then use a guidepin at the starting point establish down to the level of the lesser trochanter at the intramedullary space. I then used a starting reamer for the greater trochanter placed over the guidepin and reamed down appropriately under C-arm guidance. I was unable to place a guidepin into the intramedullary aspect of the femur and then reamed appropriately to the appropriate length. The positioning was confirmed on C-arm guidance. it had good fit and fill to the distal metaphaseal/diaphaseal junction. With the femur appropriately reamed I then chose the appropriate size intramedullary franky which was connected to the appropriate jig. The jig was checked for alignment. The area was copiously irrigated and suctioned dry and we're able place the franky at intramedullary space through the starting hole appropriately. It was seated down for appropriate position to align the leg pain into the femoral neck and head. A second incision was established at the site for the placement of the lag screw area and the guide was established at the lateral aspect of the femur and a guidepin was drilled into the femoral neck and head and near center center position. With this appropriate alignment and position where a reamer over the guidepin making sure not to penetrate the articular surface. The position was confirmed on C-arm guidance in AP and lateral positions. With this established we were able to place the appropriate size lag screw after measuring. Lag screw was placed into the femoral neck and head good alignment good position with excellent bony purchase. It was appropriately aligned and we placed a locking screw through the franky appropriately and checked that the position was established. I was able to drill and place the compression screw immediately adjacent and inferior to the lag screw in good alignment and position. With the area in good position able place a distal locking screw. We utilized the guide sleeve a separate incision was made at the skin. The freehand technique with c-arm guidance was performed in the lateral aspect of the femur and the distal locking screw dynamic hole was established through the femur and distal locking hole of the intramedullary franky. It was measured appropriately and a distal locking screw was placed in good alignment and good position with excellent bony purchase. The position was checked to make sure it was through the appropriate hole in the intramedullary franky. With this established we're able to remove the jig completely from the franky and final images were taken which showed excellent alignment and position of the hardware and the fracture. With the franky in place and the fracture stable, although the incision sites were copiously irrigated and suctioned dry. Good hemostasis was maintained. Deep fascial layers were closed with #1 Vicryl. Subcu tissue was closed with 2-0 Vicryl. Subcuticular tissues closed with 3-0 Vicryl. Was are cleaned and dried with dressed with Mastisol and Steri-Strips Telfa for a force and tape. Drapes were broken down, the hip was held in stable position with the post being removed safely once the positioning was stabilized. The patient was then transferred back to their hospital bed being careful to maintain the hip and C- spine alignment and airway. Once stable to patient was transferred back to the postanesthesia care unit to be readmitted for pain control and DVT prophylaxis medical management and monitoring and mobilization we will continue follow patient closely throughout their postoperative course.
[2018-11-08] MEDS: SODIUM CHLORIDE 0.9% 1,000 ML IV SCH (18:30)
[2018-11-08 19:24] LABS: Basophils # (A) 0.1 k/uL (0-0.2); Basophils % (A) 0 %; Eosinophils # (A) 0.2 k/uL (0-0.7); Eosinophils % (A) 2 %; HGB 13.3 gm/dL (13.0-17.5); Lymphocytes # (A) 3.1 k/uL (1.0-4.8); Lymphocytes % (A) 19 %; MCH 28.9 pg (25.0-35.0); MCHC 33.2 g/dL (31.0-37.0); Mean Platelet Volume 8.6; Monocytes % (A) 6 %; Neutrophils # (A) 11.4 k/uL (1.3-7.7); Neutrophils % (A) 71 %; Platelet Count 478 k/uL (150-450); RDW 13.8 % (11.5-15.5); WBC 16.1 k/uL (3.8-10.6)
[2018-11-08] MEDS: HYDROcodone/APAP 5-325MG 1 EACH TAB PO PRN (21:21)
[2018-11-08] MEDS: ASPIRIN 325 MG TAB PO SCH (21:21)
[2018-11-08] MEDS: traZODone HCL 100 MG TAB PO SCH (21:21)
[2018-11-09] MEDS: HYDROmorphone 1 MG/ML 1 ML SYRINGE IVP PRN ×5 (00:05→22:57)
[2018-11-09] MEDS: ceFAZolin IN SWFI 2 GM/20 ML SYRINGE IVP SCH ×2 (01:24→08:40)
[2018-11-09] MEDS: IPRATROPIUM 0.5 MG/2.5 ML NEBU INHALATION SCH ×2 (01:25→01:26)
[2018-11-09] MEDS: HYDROcodone/APAP 5-325MG 1 EACH TAB PO PRN ×4 (03:18→21:17)
[2018-11-09 07:05] LABS: HCT 35.9 % (39.0-53.0); HGB 12.1 gm/dL (13.0-17.5); MCH 29.2 pg (25.0-35.0); MCHC 33.7 g/dL (31.0-37.0); MCV 86.8 fL (80.0-100.0); Mean Platelet Volume 7.7; Platelet Count 408 k/uL (150-450); RBC 4.14 m/uL (4.30-5.90); RDW 13.7 % (11.5-15.5); WBC 11.4 k/uL (3.8-10.6)
[2018-11-09 07:11] LABS: Anion Gap 6 mmol/L; Blood Urea Nitrogen 15 mg/dL (9-20); Calcium 11.5 mg/dL (8.4-10.2); Carbon Dioxide 22 mmol/L (22-30); Chloride 115 mmol/L (98-107); Glucose 106 mg/dL (74-99); Magnesium 1.8 mg/dL (1.6-2.3); Potassium 2.8 mmol/L (3.5-5.1); Sodium 143 mmol/L (137-145)
[2018-11-09] MEDS ORDERED: Magnesium Replacement Protocol 1 EACH MISC MISCELLANE PRN (07:39)
--- NOTE | 2018-11-09 08:13 | FL ---
EXAMINATION TYPE: FL guidance operating room, XR femur RT DATE OF EXAM: 11/08/2018 CLINICAL HISTORY: Right femur fracture. TECHNIQUE: Fluoroscopy. Intraoperative 2 views right femur. COMPARISON: Right femur x-ray same day. FINDINGS: Fluoroscopic guidance was provided during open reduction internal fixation procedure perfo rmed by Dr. Colindres. A total of 2 minutes for seconds of fluoroscopic time was utilized during the pro cedure and 5 spot fluoroscopic intraoperative images are acquired. Intraoperative images acquired show placement of large intramedullary franky with distal transverse fixa ting screw and larger femoral necks fixating screws through spiral fracture proximal femoral diaphysi s subtrochanteric level. Satisfactory alignment is seen on intraoperative images saved after reductio n and fixation improved from presurgical images. IMPRESSION: As Above.
[2018-11-09] MEDS: SYMBICORT 80-4.5 MCG INHALER INHALATION SCH ×2 (08:18→20:21)
[2018-11-09] MEDS: MAGNESIUM SULFATE-D5W PMX 1 GM in DEXTROSE/WATER 1 100ML.BAG IVPB SCH ×2 (08:40→10:31)
[2018-11-09] MEDS: PANTOPRAZOLE 40 MG TABLET PO SCH (08:48)
[2018-11-09] MEDS: ASPIRIN 325 MG TAB PO SCH ×2 (08:52→21:16)
[2018-11-09] MEDS: CHOLECALCIFEROL 1,000 UNIT TAB PO SCH (08:52)
[2018-11-09] MEDS: MONTELUKAST 10 MG TAB PO SCH (08:52)
[2018-11-09] MEDS: POTASSIUM CHLORIDE ER 20 MEQ TAB.ER PO SCH ×4 (08:52→22:57)
[2018-11-09] MEDS: SENNOSIDES-DOCUSATE SODIUM 1 EACH TAB PO SCH (08:52)
[2018-11-09] MEDS: SODIUM CHLORIDE 0.9% 1,000 ML IV SCH ×2 (08:53→22:11)
[2018-11-09] MEDS: NICOTINE 14MG/24HR PATCH TRANSDERM SCH (08:56)
--- NOTE | 2018-11-09 11:20 | P.PN ---
Subjective Progress Note Date: 11/09/18 Principal diagnosis: Right femoral shaft/subtrochanteric femur fracture status post fall Patient is a very pleasant 58-year-old male who is seen and examined at the bedside for h right hip. He is status post right right IM rodding of the right femoral shaft/subcu trochanteric femur fracture with hip screw placement for him yesterday, 11/08/2018. His pain at the right hip has been fairly well controlled. He has remained toe-touch weightbearing on the right lower extremity. He has not worked with physical therapy this morning to increase mobility and ambulation. He is planning for discharge to rehabilitation facility as early this coming 11/12/2018. He is eating and voiding without difficulty. His Flores catheter has discontinued. He has no new complaints at the bedside. Objective - Vital Signs Vital signs: Vital Signs Temp 98.4 F 11/09/18 07:14 Pulse 64 11/09/18 07:14 Resp 18 11/09/18 07:14 BP 121/79 11/09/18 07:14 Pulse Ox 98 11/09/18 07:14 Intake & Output 11/08/18 11/09/18 11/09/18 18:59 06:59 18:59 Intake Total 881 3450 600 Output Total 175 725 300 Balance 706 2725 300 Intake: IV 681 Intake, IV Titration 200 1600 Amount Potassium Chloride 10 meq 200 In Water For Injection 1 100ml.bag @ 100 mls/hr IVPB Q1HR [facility] Rx#: [id number] Sodium Chloride 0.9% 1, 1600 000 ml @ 100 mls/hr IV . Q10H [facility] Rx#:[id number] Oral 1850 600 Output: Urine 75 725 300 Estimated Blood Loss 100 Other: Voiding Method Urinal Urinal # Voids 2 - Exam Physical Exam: Status post surgical day number 1 Patient is examined sitting up in bed Patient is awake and alert, and oriented 3 Vital signs stable Good chest excursion with deep inspiration and expiration Abdomen soft nontender No signs or symptoms of DVT; no calf pain Lower extremity cuff in place on the left Dressing of the right hip is clean, dry, and intact; no erythema, purulence, or signs of infection No significant pain on palpation over the surgical sites Full range of motion of ankles bilaterally Dorsiflexion, plantarflexion, and extensor hallucis longus positive sustained bilaterally Neurovascularly intact bilateral lower extremities Capillary refill less than 2 seconds bilateral lower extremities - Labs CBC & Chem 7: 11/09/18 06:26 11/09/18 06:26 Labs: Abnormal Lab Results - Last 24 Hours (Table) 11/08/18 11/09/18 11/09/18 Range/Units 18:41 06:26 06:26 WBC 16.1 H 11.4 H (3.8-10.6) k/uL RBC 4.14 L (4.30-5.90) m/uL Hgb 12.1 L (13.0-17.5) gm/dL Hct 35.9 L (39.0-53.0) % Plt Count 478 H (150-450) k/uL Neutrophils # 11.4 H (1.3-7.7) k/uL Potassium 2.8 L (3.5-5.1) mmol/L Chloride 115 H (98-107) mmol/L Creatinine 0.55 L (0.66-1.25) mg/dL Glucose 106 H (74-99) mg/dL Calcium 11.5 H (8.4-10.2) mg/dL Assessment and Plan Assessment: Assessment: Status post intramedullary rodding of the right femoral shaft/subtrochanteric femur fracture with hip screw placement Right hip pain Inability to ambulate due to leg fracture History of COPD (1) Right hip pain Current Visit: Yes Status: Acute Code(s): M25.551 - PAIN IN RIGHT HIP SNOMED Code(s): 28457674 (2) Status post fall Current Visit: Yes Status: Acute Code(s): Z91.81 - HISTORY OF FALLING SNOMED Code(s): 267609823 (3) History of COPD Current Visit: Yes Status: Acute Code(s): Z87.09 - PERSONAL HISTORY OF OTHER DISEASES OF THE RESPIRATORY SYSTEM SNOMED Code(s): 631308490 (4) Fall Current Visit: Yes Status: Acute Code(s): W19.XXXA - UNSPECIFIED FALL, INITIAL ENCOUNTER SNOMED Code(s): 3978433 (5) Right femoral shaft fracture Current Visit: Yes Status: Acute Code(s): S72.301A - UNSP FRACTURE OF SHAFT OF RIGHT FEMUR, INIT FOR CLOS FX SNOMED Code(s): 80699218 Plan: Plan: 1. Patient to remain toe-touch weightbearing on the right lower extremity; patient may work with physical therapy to increase mobility and ambulation 2. Keep dressing over the right hip clean, dry, and intact 3. Continue pain control oral [place] and IV Dilaudid; [place] will be increased to 1-2 tabs every 4 hours as needed for pain 4. Continue with anticoagulation therapy with aspirin 325 mg twice a day 5. Medicine to continue following the patient for their other medical diagnosis 6. We'll continue to follow the patient closely; depending on the patient's progress, we may plan for discharge as early as this coming Saturday, 2017, to a rehabilitation facility 7. Patient can follow-up with Lucho Agarwal PA-C or Dr. Ruddy Colindres at [facility] in 2-3 weeks following discharge Time with Patient: Less than 30
[2018-11-09] MEDS: LISINOPRIL 5 MG TAB PO SCH (11:50)
--- NOTE | 2018-11-09 13:33 | PN ---
PROGRESS NOTE CHIEF COMPLAINT: Right hip fracture. HISTORY OF PRESENT ILLNESS: This gentleman is doing fairly well and there has been no interval change. PHYSICAL EXAM: Chest is clear. Cardiac exam is normal. Abdomen is soft, nontender. IMPRESSION: 1. Fracture of the right hip. 2. Hypokalemia. PLAN: Continue to follow labs. His potassium is 2.8. This will be corrected. White count 16,100. MMODL / IJN: [id number] /
[2018-11-09 15:33] LABS: Magnesium 2.4 mg/dL (1.6-2.3)
[2018-11-09] MEDS ORDERED: POTASSIUM CHLORIDE ER 20 MEQ TAB.ER PO SCH (16:00)
[2018-11-09] MEDS: ALBUTEROL NEBULIZED 2.5 MG/3 ML INHALATION PRN (20:22)
[2018-11-09] MEDS: traZODone HCL 100 MG TAB PO SCH (21:17)
[2018-11-10] MEDS: HYDROcodone/APAP 5-325MG 1 EACH TAB PO PRN ×5 (01:02→18:09)
[2018-11-10] MEDS: HYDROmorphone 1 MG/ML 1 ML SYRINGE IVP PRN ×5 (02:58→20:17)
[2018-11-10 09:02] LABS: HCT 36.7 % (39.0-53.0); HGB 12.2 gm/dL (13.0-17.5); MCH 29.5 pg (25.0-35.0); MCHC 33.1 g/dL (31.0-37.0); MCV 88.9 fL (80.0-100.0); Mean Platelet Volume 7.8; Platelet Count 400 k/uL (150-450); RBC 4.13 m/uL (4.30-5.90); RDW 13.8 % (11.5-15.5); WBC 11.1 k/uL (3.8-10.6)
[2018-11-10 09:29] LABS: Anion Gap 5 mmol/L; Blood Urea Nitrogen 16 mg/dL (9-20); Calcium 10.5 mg/dL (8.4-10.2); Carbon Dioxide 22 mmol/L (22-30); Chloride 116 mmol/L (98-107); Glucose 123 mg/dL (74-99); Magnesium 1.9 mg/dL (1.6-2.3); Potassium 3.5 mmol/L (3.5-5.1); Sodium 143 mmol/L (137-145)
[2018-11-10] MEDS: SYMBICORT 80-4.5 MCG INHALER INHALATION SCH ×2 (09:47→20:22)
--- NOTE | 2018-11-10 09:58 | P.PN ---
Subjective Progress Note Date: 11/10/18 Principal diagnosis: Right femoral shaft/subtrochanteric femur fracture status post fall Patient is a very pleasant 58-year-old male who is seen and examined at the bedside for h right hip. He is status post right right IM rodding of the right femoral shaft/subcu trochanteric femur fracture with hip screw placement for him yesterday, 11/08/2018. His pain at the right hip has been fairly well controlled. He has remained toe-touch weightbearing on the right lower extremity. He has not worked with physical therapy this morning to increase mobility and ambulation. He is planning for discharge to rehabilitation facility as early this coming 11/12/2018. He is eating and voiding without difficulty. His Flores catheter has discontinued. He states he has had an exacerbation of left knee pain following his fall which resulted in his right femur fracture. He states he does have chronic changes at his left knee and states his left knee has been x-rayed multiple times without evidence of fracture. He states he does have ligament damage to the left knee. He feels his left knee is more painful following the fall and this had increased pain with trying to move his left knee. He is requiring [place] 5 mg/325 mg 1-2 tabs every 4 hours as needed for pain and Dilaudid IV every 4 hours as needed for pain. Objective - Vital Signs Vital signs: Vital Signs Temp 97.8 F 11/10/18 08:05 Pulse 70 11/10/18 08:05 Resp 18 11/10/18 08:05 BP 123/74 11/10/18 08:05 Pulse Ox 97 11/10/18 08:05 Intake & Output 11/09/18 11/10/18 11/10/18 18:59 06:59 18:59 Intake Total 1400 980 Output Total 900 Balance 500 980 Intake: Intake, IV Titration 800 30 Amount Magnesium Sulfate-D5w Pmx 200 1 gm In Dextrose/Water 1 100ml.bag @ 100 mls/hr IVPB Q1H [facility] Rx#: [id number] Sodium Chloride 0.9% 1, 600 30 000 ml @ 75 mls/hr IV . [id number] [facility] Rx#:[id number] Oral 600 950 Output: Urine 900 Other: Voiding Method Urinal Urinal Urinal # Voids 2 3 - Exam Physical Exam: Status post surgical day number 2 Patient is examined sitting up in bed Patient is awake and alert, and oriented 3 Vital signs stable Good chest excursion with deep inspiration and expiration Abdomen soft nontender No signs or symptoms of DVT; no calf pain Lower extremity cuff in place on the left but cuff has been moved over the left knee Significant pain with palpation over the entire left knee most significant medially Evidence of swelling of the left medial knee without specific palpable fluid collection No significant erythema, bruising, or obvious sign of infection at the left knee Evidence of a small ring scab over the left patella Dressing of the right hip is clean, dry, and intact; no erythema, purulence, or signs of infection No significant pain on palpation over the surgical sites Full range of motion of ankles bilaterally Dorsiflexion, plantarflexion, and extensor hallucis longus positive sustained bilaterally Neurovascularly intact bilateral lower extremities Capillary refill less than 2 seconds bilateral lower extremities - Labs CBC & Chem 7: 11/10/18 08:12 11/10/18 08:12 Labs: Abnormal Lab Results - Last 24 Hours (Table) 11/09/18 11/10/18 11/10/18 Range/Units 15:00 08:12 08:12 WBC 11.1 H (3.8-10.6) k/uL RBC 4.13 L (4.30-5.90) m/uL Hgb 12.2 L (13.0-17.5) gm/dL Hct 36.7 L (39.0-53.0) % Potassium 3.0 L (3.5-5.1) mmol/L Chloride 116 H (98-107) mmol/L Creatinine 0.58 L (0.66-1.25) mg/dL Glucose 123 H (74-99) mg/dL Calcium 10.5 H (8.4-10.2) mg/dL Magnesium 2.4 H (1.6-2.3) mg/dL Assessment and Plan Assessment: Assessment: Status post intramedullary rodding of the right femoral shaft/subtrochanteric femur fracture with hip screw placement Right hip pain Inability to ambulate due to leg fracture Acute on chronic left knee pain exacerbated after recent fall History of COPD (1) Right hip pain Current Visit: Yes Status: Acute Code(s): M25.551 - PAIN IN RIGHT HIP SNOMED Code(s): 17570267 (2) Status post fall Current Visit: Yes Status: Acute Code(s): Z91.81 - HISTORY OF FALLING SNOMED Code(s): 941800186 (3) History of COPD Current Visit: Yes Status: Acute Code(s): Z87.09 - PERSONAL HISTORY OF OTHER DISEASES OF THE RESPIRATORY SYSTEM SNOMED Code(s): 196532512 (4) Fall Current Visit: Yes Status: Acute Code(s): W19.XXXA - UNSPECIFIED FALL, INITIAL ENCOUNTER SNOMED Code(s): 1904884 (5) Right femoral shaft fracture Current Visit: Yes Status: Acute Code(s): S72.301A - UNSP FRACTURE OF SHAFT OF RIGHT FEMUR, INIT FOR CLOS FX SNOMED Code(s): 26453598 Plan: Plan: 1. Patient to remain toe-touch weightbearing on the right lower extremity; patient may work with physical therapy to increase mobility and ambulation 2. Keep dressing over the right hip clean, dry, and intact 3. Continue pain control oral [place] and IV Dilaudid; [place] will be increased to 1-2 tabs every 4 hours as needed for pain 4. Continue with anticoagulation therapy with aspirin 325 mg twice a day 5. We'll plan to obtain x-rays of the left knee for further evaluation after he has experienced an exacerbation of acute on chronic left knee pain following his recent fall with evidence of swelling at the left medial knee and significant pain with palpation over the left knee 6. Medicine to continue following the patient for their other medical diagnosis 7. We'll continue to follow the patient closely; depending on the patient's progress, we may plan for discharge as early as this coming Saturday, 2017, to a rehabilitation facility; patient has been discussed with case management will plan to evaluate the patient to begin working on arrangements for discharge to a rehabilitation facility 8. Patient can follow-up with Lucho Agarwal PA-C or Dr. Ruddy Colindres at [facility] in 2-3 weeks following discharge Time with Patient: Less than 30
[2018-11-10] MEDS: MONTELUKAST 10 MG TAB PO SCH (10:32)
[2018-11-10] MEDS: ASPIRIN 325 MG TAB PO SCH ×2 (10:33→20:18)
[2018-11-10] MEDS: SENNOSIDES-DOCUSATE SODIUM 1 EACH TAB PO SCH (10:33)
[2018-11-10] MEDS: CHOLECALCIFEROL 1,000 UNIT TAB PO SCH (10:34)
[2018-11-10] MEDS: PANTOPRAZOLE 40 MG TABLET PO SCH (10:34)
[2018-11-10] MEDS: NICOTINE 14MG/24HR PATCH TRANSDERM SCH (10:34)
--- NOTE | 2018-11-10 11:35 | XR ---
EXAMINATION TYPE: XR knee complete LT DATE OF EXAM: 11/10/2018 CLINICAL HISTORY: Left knee pain. TECHNIQUE: Three views of the left knee are obtained. COMPARISON: Prior left knee x-ray October 23, 2018 FINDINGS: There is no acute fracture/dislocation evident in left knee. There is stable mild tricompa rtment joint space loss with mild spurring. The overlying soft tissue appears unremarkable. IMPRESSION: As above, no significant change from prior
[2018-11-10] MEDS: LISINOPRIL 5 MG TAB PO SCH (12:01)
[2018-11-10] MEDS: SODIUM CHLORIDE 0.9% 1,000 ML IV SCH (12:02)
[2018-11-10 19:11] LABS: Basophils % (A) 0 %; Eosinophils # (A) 0.2 k/uL (0-0.7); Eosinophils % (A) 2 %; HCT 36.2 % (39.0-53.0); HGB 11.4 gm/dL (13.0-17.5); Lymphocytes # (A) 2.3 k/uL (1.0-4.8); Lymphocytes % (A) 19 %; MCH 28.1 pg (25.0-35.0); MCHC 31.5 g/dL (31.0-37.0); MCV 89.3 fL (80.0-100.0); Mean Platelet Volume 7.7; Monocytes # (A) 0.7 k/uL (0-1.0); Monocytes % (A) 6 %; Neutrophils # (A) 8.6 k/uL (1.3-7.7); Neutrophils % (A) 71 %; Platelet Count 384 k/uL (150-450); RBC 4.06 m/uL (4.30-5.90); RDW 13.8 % (11.5-15.5); WBC 12.1 k/uL (3.8-10.6)
[2018-11-10] MEDS: traZODone HCL 100 MG TAB PO SCH (20:18)
--- NOTE | 2018-11-10 20:46 | PN ---
PROGRESS NOTE CHIEF COMPLAINT: Fracture of the right femur. HISTORY OF PRESENT ILLNESS: This gentleman is doing well. He is complaining of the pain. He could probably be discharged any time. He is cleared by Orthopedics. PHYSICAL EXAM: Chest is clear. Cardiac exam is normal. Abdomen is flat, soft, nontender. IMPRESSION: Fracture of the right femur. PLAN: The patient can be discharged anytime from my perspective. MMODL / IJN: [id number] /
[2018-11-11] MEDS: HYDROcodone/APAP 5-325MG 1 EACH TAB PO PRN ×5 (00:29→20:45)
[2018-11-11] MEDS: HYDROmorphone 1 MG/ML 1 ML SYRINGE IVP PRN ×6 (01:44→22:37)
[2018-11-11] MEDS: MONTELUKAST 10 MG TAB PO SCH (08:14)
[2018-11-11] MEDS: LISINOPRIL 5 MG TAB PO SCH (08:14)
[2018-11-11] MEDS: PANTOPRAZOLE 40 MG TABLET PO SCH (08:14)
[2018-11-11] MEDS: CHOLECALCIFEROL 1,000 UNIT TAB PO SCH (08:14)
[2018-11-11] MEDS: SENNOSIDES-DOCUSATE SODIUM 1 EACH TAB PO SCH (08:14)
[2018-11-11] MEDS: ASPIRIN 325 MG TAB PO SCH ×2 (08:14→22:37)
[2018-11-11] MEDS: NICOTINE 14MG/24HR PATCH TRANSDERM SCH (08:15)
[2018-11-11] MEDS: SYMBICORT 80-4.5 MCG INHALER INHALATION SCH ×2 (09:19→21:15)
[2018-11-11] MEDS: ALBUTEROL NEBULIZED 2.5 MG/3 ML INHALATION PRN (09:19)
[2018-11-11] MEDS: SODIUM CHLORIDE 0.9% 1,000 ML IV SCH ×2 (13:54→16:48)
--- NOTE | 2018-11-11 14:09 | P.PN ---
Subjective Progress Note Date: 11/11/18 Principal diagnosis: Right femoral shaft/subtrochanteric femur fracture status post fall; left knee pain Patient is a very pleasant 58-year-old male who is seen and examined at the bedside for h right hip. He is status post right right IM rodding of the right femoral shaft/subcu trochanteric femur fracture with hip screw placement for him yesterday, 11/08/2018. His pain at the right hip has been fairly well controlled. He has remained toe-touch weightbearing on the right lower extremity. He is planning for discharge to rehabilitation facility as early this coming 11/12/2018. He is eating and voiding without difficulty. His Flores catheter has discontinued. He states he has had an exacerbation of left knee pain following his fall which resulted in his right femur fracture. He states at the bedside and his left-sided knee pain is his most significant symptom. He states he does have chronic changes at his left knee and states his left knee has been x-rayed multiple times without evidence of fracture. His most recent x-ray imaging was taken on 10/23/2018. We did obtain new imaging yesterday, 11/10/2018. He states he does have ligament damage to the left knee. He feels his left knee is more painful following the fall and this had increased pain with trying to move his left knee. He is requiring [place] 5 mg/325 mg 1-2 tabs every 4 hours as needed for pain and Dilaudid IV every 4 hours as needed for pain. Objective - Vital Signs Vital signs: Vital Signs Temp 97.9 F 11/11/18 08:06 Pulse 60 11/11/18 09:32 Resp 20 11/11/18 08:06 BP 122/72 11/11/18 08:06 Pulse Ox 97 11/11/18 08:06 Intake & Output 11/10/18 11/11/18 11/11/18 18:59 06:59 18:59 Intake Total 30 850 118 Output Total 150 Balance 30 700 118 Intake: Intake, IV Titration 30 Amount Sodium Chloride 0.9% 1, 30 000 ml @ 75 mls/hr IV . [id number] [facility] Rx#:[id number] Oral 850 118 Output: Urine 150 Other: Voiding Method Urinal Urinal Urinal # Voids 3 - Exam Physical Exam: Status post surgical day number 3 Patient is examined sitting up in bed Patient is awake and alert, and oriented 3 Vital signs stable Good chest excursion with deep inspiration and expiration Abdomen soft nontender No signs or symptoms of DVT; no calf pain Lower extremity cuff in place on the left but cuff has again been moved over the left knee Significant pain with palpation over the entire left knee most significant medially Evidence of mild swelling of the left medial knee without specific palpable fluid collection No significant erythema, bruising, or obvious sign of infection at the left knee Evidence of a small ring scab over the left patella Dressing of the right hip is clean, dry, and intact; no erythema, purulence, or signs of infection No significant pain on palpation over the surgical sites Full range of motion of ankles bilaterally Dorsiflexion, plantarflexion, and extensor hallucis longus positive sustained bilaterally Neurovascularly intact bilateral lower extremities Capillary refill less than 2 seconds bilateral lower extremities - Labs CBC & Chem 7: 11/10/18 18:48 11/10/18 08:12 Labs: Abnormal Lab Results - Last 24 Hours (Table) 11/10/18 Range/Units 18:48 WBC 12.1 H (3.8-10.6) k/uL RBC 4.06 L (4.30-5.90) m/uL Hgb 11.4 L (13.0-17.5) gm/dL Hct 36.2 L (39.0-53.0) % Neutrophils # 8.6 H (1.3-7.7) k/uL - Imaging and Cardiology X-rays of the left knee: Evidence of small cortical defect at the anterior distal femur, stable mild tricompartmental osteoarthritis, no evidence of dislocation and no evidence of significant soft tissue changes; imaging has remained stable without significant changes compared to previous imaging taken on 10/23/2018 Assessment and Plan Assessment: Assessment: Status post intramedullary rodding of the right femoral shaft/subtrochanteric femur fracture with hip screw placement Right hip pain Inability to ambulate due to right proximal femur fracture and left knee pain Small cortical defect anterior distal femur without obvious fracture Acute on chronic left knee pain exacerbated after recent fall History of COPD (1) Right hip pain Current Visit: Yes Status: Acute Code(s): M25.551 - PAIN IN RIGHT HIP SNOMED Code(s): 85243989 (2) Status post fall Current Visit: Yes Status: Acute Code(s): Z91.81 - HISTORY OF FALLING SNOMED Code(s): 061276539 (3) History of COPD Current Visit: Yes Status: Acute Code(s): Z87.09 - PERSONAL HISTORY OF OTHER DISEASES OF THE RESPIRATORY SYSTEM SNOMED Code(s): 040027237 (4) Fall Current Visit: Yes Status: Acute Code(s): W19.XXXA - UNSPECIFIED FALL, INITIAL ENCOUNTER SNOMED Code(s): 4207483 (5) Right femoral shaft fracture Current Visit: Yes Status: Acute Code(s): S72.301A - UNSP FRACTURE OF SHAFT OF RIGHT FEMUR, INIT FOR CLOS FX SNOMED Code(s): 42500000 Plan: Plan: 1. Patient to remain toe-touch weightbearing on the right lower extremity; patient may work with physical therapy to increase mobility and ambulation 2. Keep dressing over the right hip clean, dry, and intact 3. Continue pain control oral [place] and IV Dilaudid; [place] will be increased to 1-2 tabs every 4 hours as needed for pain 4. Continue with anticoagulation therapy with aspirin 325 mg twice a day 5. X-rays of the left knee have been obtained and interpreted. This imaging has been reviewed by Dr. Ruddy Colindres and myself. We have compared x-ray studies from 11/10/2018 to studies taken on 10/23/2018. Imaging does show evidence of small cortical defect of the anterior distal femur in which this cortical defect does not show change has compared to previous study taken on 10/23/2018. He does have evidence of stable mild tricompartmental osteoarthritis. It was discussed with the patient detail that he may weight-bear on the left lower extremity. We will plan to obtain MRI imaging of his left knee but discussed will most likely be unable to obtain this MRI until at least 6 weeks postoperatively following surgical intervention for his right proximal femur fracture. 6. Medicine to continue following the patient for their other medical diagnosis 7. We'll continue to follow the patient closely; depending on the patient's progress, we may plan for discharge as early as this coming Saturday, 2017, to a rehabilitation facility; patient has been discussed with case management will plan to evaluate the patient to begin working on arrangements for discharge to a rehabilitation facility 8. Patient can follow-up with Lucho Agarwal PA-C or Dr. Ruddy Colindres at [facility] in 2-3 weeks following discharge Time with Patient: Less than 30
[2018-11-11] MEDS: traZODone HCL 100 MG TAB PO SCH (22:37)
[2018-11-12] MEDS: HYDROcodone/APAP 5-325MG 1 EACH TAB PO PRN ×4 (00:53→17:23)
[2018-11-12] MEDS: HYDROmorphone 1 MG/ML 1 ML SYRINGE IVP PRN ×4 (02:50→14:49)
[2018-11-12] MEDS: SODIUM CHLORIDE 0.9% 1,000 ML IV SCH ×2 (07:21→07:28)
[2018-11-12] MEDS: LISINOPRIL 5 MG TAB PO SCH (07:27)
[2018-11-12] MEDS: ASPIRIN 325 MG TAB PO SCH ×2 (07:27→19:54)
[2018-11-12] MEDS: PANTOPRAZOLE 40 MG TABLET PO SCH (07:27)
[2018-11-12] MEDS: NICOTINE 14MG/24HR PATCH TRANSDERM SCH (07:27)
[2018-11-12] MEDS: CHOLECALCIFEROL 1,000 UNIT TAB PO SCH (07:27)
[2018-11-12] MEDS: MONTELUKAST 10 MG TAB PO SCH (07:27)
[2018-11-12] MEDS: SENNOSIDES-DOCUSATE SODIUM 1 EACH TAB PO SCH (07:28)
[2018-11-12] MEDS: SYMBICORT 80-4.5 MCG INHALER INHALATION SCH ×2 (08:58→21:19)
--- NOTE | 2018-11-12 11:32 | P.DS ---
Providers Date of admission: 11/08/18 03:24 Expected date of discharge: 11/12/18 Attending physician: Kaci Colindres Consults: 11/08/18 03:21 Consult Physician Routine Consulting Provider: Donta Jeong Consult Reason/Comments: medical clearance Do you want consulting provider notified?: Yes Primary care physician: Joaquin Kaiser - Discharge Diagnosis(es) (1) Right hip pain Assessment: Status post intramedullary rodding of the right femoral shaft/subtrochanteric femur fracture with hip screw placement Right hip pain Inability to ambulate due to right proximal femur fracture and left knee pain Small cortical defect anterior distal femur without obvious fracture Acute on chronic left knee pain exacerbated after recent fall History of COPD Current Visit: Yes Status: Acute (2) Status post fall Current Visit: Yes Status: Acute (3) History of COPD Current Visit: Yes Status: Acute (4) Fall Current Visit: Yes Status: Acute (5) Right femoral shaft fracture Current Visit: Yes Status: Acute Hospital Course: This is a pleasant 58-year-old male who presented with right femoral shaft/ subtrochanteric femur fracture. He was admitted for further treatment and evaluation and underwent a right hip intramedullary rodding of the right femur. The patient tolerated the procedure well and did well postoperatively in regards to his right hip. He has had some exacerbation of left knee pain during his admission to the hospital which is chronic for him. X-ray imaging does show some cortical defect at the left distal anterior femur. We will plan to further evaluate this an outpatient setting. He has had some difficulty with pain control postoperatively but states his pain is more significant in his left knee and is at his right hip. He continues to be toe-touch weightbearing only on the right lower extremity. He may weight-bear as tolerated on the left lower extremity. Condition on day of discharge stable. Patient will be discharged a rehabilitation facility at the time of discharge. Patient was cleared preoperatively for surgery by Dr. Jeong. Patient currently denies any nausea, vomiting, fever, or chills. Patient is eating and voiding freely without difficulty. Patient may shower without a dressing intact over his incision sites of the right hip at this time. MAPS has been reviewed today, 11/12/2018, with an Overall Overdose Risk Score of 290 and a narcotic risk score of 180. An "Opiod Start Talking" Forn has been signed by the patient and myself in place in the patient's chart. A prescription has been written for [place] 7.5 mg/325 mg take 1-2 tabs every 4 hours as needed for pain, dispensed #84. Patient has been taking [place] during admission without difficulty. Patient is also given a prescription for aspirin 325 mg 1 tablet twice a day dispensed #60 at discharge for anticoagulation. He should take his medication prescription until completion. Physical Exam on day of discharge: Status post surgical day number 4 Patient is examined sitting up in bed Patient is awake and alert, and oriented 3 Vital signs stable Good chest excursion with deep inspiration and expiration Abdomen soft nontender No signs or symptoms of DVT; no calf pain Lower extremity cuff in place on the left but cuff has again been moved over the left knee Significant pain with palpation over the entire left knee most significant medially Evidence of mild swelling of the left medial knee without specific palpable fluid collection No significant erythema, bruising, or obvious sign of infection at the left knee Evidence of a small ring scab over the left patella Dressing of the right hip is clean, dry, and intact; no erythema, purulence, or signs of infection No significant pain on palpation over the surgical sites Full range of motion of ankles bilaterally Dorsiflexion, plantarflexion, and extensor hallucis longus positive sustained bilaterally Neurovascularly intact bilateral lower extremities Capillary refill less than 2 seconds bilateral lower extremities Procedures: Right hip intramedullary rodding of the right femur Patient Condition at Discharge: Stable Plan - Discharge Summary Discharge Rx Participant: Yes New Discharge Prescriptions: New Aspirin 325 mg PO BID #60 tab HYDROcodone/APAP 7.5-325MG [[place] 7.5-325] 1 - 2 each PO Q4H PRN #84 tab PRN Reason: Pain Continue Montelukast Sodium [Singulair] 10 mg PO DAILY Omeprazole [PriLOSEC] 20 mg PO AC-BRKFST Umeclidinium [place] [Incruse Ellipta] 1 puff INHALATION RT-DAILY Albuterol Inhaler [Ventolin Hfa Inhaler] 2 puff INHALATION RT-QID PRN PRN Reason: Shortness Of Breath traZODone HCL [Desyrel] 100 mg PO HS #30 tab Lisinopril [Zestril] 5 mg PO DAILY Budesonide/Formoterol Fumarate [Symbicort 80-4.5 Mcg Inhaler] 2 puff INHALATION RT-BID Cholecalciferol [Vitamin D3] 2,000 unit PO DAILY Ipratropium-Albuterol Nebulize [Duoneb 0.5 mg-3 mg/3 ml Soln] 3 ml INHALATION RT-QID PRN PRN Reason: Shortness Of Breath Discontinued Nicotine 14Mg/24Hr Patch [Habitrol 14Mg/24Hr Patch] 1 patch TRANSDERM DAILY Ibuprofen [Motrin] 800 mg PO BID PRN PRN Reason: Pain Ibuprofen [Motrin] 600 mg PO Q8HR PRN #20 tab PRN Reason: Pain Discharge Medication List Montelukast Sodium [Singulair] 10 mg PO DAILY 04/06/14 [History] Omeprazole [PriLOSEC] 20 mg PO AC-BRKFST 04/06/14 [History] Albuterol Inhaler [Ventolin Hfa Inhaler] 2 puff INHALATION RT-QID PRN 02/22/17 [ History] Umeclidinium [place] [Incruse Ellipta] 1 puff INHALATION RT-DAILY 02/22/17 [ History] traZODone HCL [Desyrel] 100 mg PO HS #30 tab 02/24/17 [Rx] Budesonide/Formoterol Fumarate [Symbicort 80-4.5 Mcg Inhaler] 2 puff INHALATION RT-BID 10/23/18 [History] Cholecalciferol [Vitamin D3] 2,000 unit PO DAILY 10/23/18 [History] Ipratropium-Albuterol Nebulize [Duoneb 0.5 mg-3 mg/3 ml Soln] 3 ml INHALATION RT -QID PRN 10/23/18 [History] Lisinopril [Zestril] 5 mg PO DAILY 10/23/18 [History] Aspirin 325 mg PO BID #60 tab 11/12/18 [Rx] HYDROcodone/APAP 7.5-325MG [[place] 7.5-325] 1 - 2 each PO Q4H PRN #84 tab [Rx] Follow up Appointment(s)/Referral(s): Lucho Agarwal, GRANT [PHYSICIAN REFRIGERATOR MOVER] - 2 Weeks (Patient may follow-up with Lucho Agarwal PA-C or Dr. Ruddy Pasia at [facility] in 2-3 weeks following discharge. ) Joaquin Kaiser MD [Primary Care Provider] - 1-2 days Activity/Diet/Wound Care/Special Instructions: 1. Remain toe-touch weightbearing on the right lower extremity 2. Keep dressing over the right hip clean, dry, and intact 3. Patient is shower without a dressing over the incision sites of the right hip if incision sites remain dry for 72 hours 4. May apply ice over the right hip for comfort support as needed 5. Take medications as prescribed Discharge Disposition: TRANSFER TO SNF/ECF
--- NOTE | 2018-11-12 17:37 | PN ---
PROGRESS NOTE CHIEF COMPLAINT: Right hip fracture. HISTORY OF PRESENT ILLNESS: This gentleman is doing well and could be discharged anytime from my perspective. He has continued to receive IV Dilaudid and when his IV could not be started, the decision was made to remove it and manage him on just oral medication. At that time, he became very angry and belligerent, demanding the Dilaudid it. This is not necessary and will be stopped. MMODL / IJN: [id number] /
--- NOTE | 2018-11-12 18:10 | PN ---
PROGRESS NOTE DATE OF SERVICE: 11/11/2018 CHIEF COMPLAINT: Fracture of the right femur. HISTORY OF PRESENT ILLNESS: This gentleman is doing well and there has been no interval change. We are looking for discharge plan soon. PHYSICAL EXAMINATION: Chest is clear. The cardiac exam is normal. Abdomen is soft, nontender. IMPRESSION: Fracture of the right hip. PLAN: Probably discharge soon. MMODL / IJN: [id number] /
[2018-11-12] MEDS ORDERED: HYDROcodone/APAP 7.5-325MG 1 EACH TAB PO PRN (19:39)
[2018-11-12] MEDS: HYDROmorphone 0.5 MG/0.5 ML SYRINGE IVP PRN (19:53)
[2018-11-12] MEDS: traZODone HCL 100 MG TAB PO SCH (19:54)
[2018-11-12] MEDS: ALBUTEROL NEBULIZED 2.5 MG/3 ML INHALATION PRN (21:19)
[2018-11-12] MEDS: HYDROcodone/APAP 7.5-325MG 1 EACH TAB PO PRN (23:36)
[2018-11-13] MEDS: HYDROmorphone 0.5 MG/0.5 ML SYRINGE IVP PRN ×7 (01:56→21:32)
[2018-11-13] MEDS: HYDROcodone/APAP 7.5-325MG 1 EACH TAB PO PRN ×3 (04:36→16:49)
[2018-11-13] MEDS: ASPIRIN 325 MG TAB PO SCH ×2 (07:56→21:32)
[2018-11-13] MEDS: PANTOPRAZOLE 40 MG TABLET PO SCH (07:56)
[2018-11-13] MEDS: CHOLECALCIFEROL 1,000 UNIT TAB PO SCH (07:56)
[2018-11-13] MEDS: MONTELUKAST 10 MG TAB PO SCH (07:57)
[2018-11-13] MEDS: LISINOPRIL 5 MG TAB PO SCH (07:57)
[2018-11-13] MEDS: SENNOSIDES-DOCUSATE SODIUM 1 EACH TAB PO SCH (07:57)
[2018-11-13] MEDS: NICOTINE 14MG/24HR PATCH TRANSDERM SCH (07:59)
[2018-11-13] MEDS: SYMBICORT 80-4.5 MCG INHALER INHALATION SCH ×2 (08:35→20:38)
--- NOTE | 2018-11-13 08:52 | P.PN ---
Subjective Progress Note Date: 11/13/18 Principal diagnosis: Status post IM rodding right femoral shaft/subtrochanteric fracture This is a 58 year-old male post IM rodding right femoral shaft/subtrochanteric fracture. This is post-op day 5. The patient was evaluated at the bedside today. The patient denies nausea, vomiting, abdominal pain, shortness of breath , and chest pain this morning. He states his pain is controlled at this time. The patient has been up with physical therapy. We are awaiting rehab placement. Objective - Vital Signs Vital signs: Vital Signs Temp 98.2 F 11/13/18 07:28 Pulse 58 L 11/13/18 07:28 Resp 16 11/13/18 07:28 BP 107/68 11/13/18 07:28 Pulse Ox 98 11/13/18 07:28 Intake & Output 11/12/18 11/13/18 11/13/18 18:59 06:59 18:59 Intake Total 1080 Output Total 475 Balance 605 Intake: Oral 1080 Output: Urine 475 Other: Voiding Method Urinal Urinal # Voids 1 - Exam The patient does not appear in acute distress. Alert and orientated x3. Dressing is clean dry and intact. Incision appears fine with no erythema or active drainage. Calf is soft and nontender. Good foot and ankle motion without difficulty. Sensation and circulatory status is intact. - Labs CBC & Chem 7: 11/10/18 18:48 11/10/18 08:12 Assessment and Plan (1) Right femoral shaft fracture Current Visit: Yes Status: Acute Code(s): S72.301A - UNSP FRACTURE OF SHAFT OF RIGHT FEMUR, INIT FOR CLOS FX SNOMED Code(s): 39723752 (2) Status post fall Current Visit: Yes Status: Acute Code(s): Z91.81 - HISTORY OF FALLING SNOMED Code(s): 804948692 Plan: 1. Continue pain control 2. Anticoagulation with Aspirin 3. Continue physical therapy and ambulation 4. Anticipate discharge to skilled rehab when bed is available.
[2018-11-13] MEDS: IPRATROPIUM 0.5 MG/2.5 ML NEBU INHALATION SCH ×3 (09:56→10:30)
--- NOTE | 2018-11-13 18:59 | PN ---
PROGRESS NOTE CHIEF COMPLAINT: Fracture of the hip. HISTORY OF PRESENT ILLNESS: This gentleman is doing fairly well and could be discharged any time. I understand that he is homeless and this may be a problem. PHYSICAL EXAMINATION: Unchanged. IMPRESSION: 1. Fracture of right hip. 2. Chronic obstructive pulmonary disease. PLAN: The patient may be discharged to rehab at any time. MMMARIAELENA / MILEYN: [id number] /
[2018-11-13] MEDS: traZODone HCL 100 MG TAB PO SCH (21:32)
[2018-11-14] MEDS: IPRATROPIUM 0.5 MG/2.5 ML NEBU INHALATION SCH (00:10)
[2018-11-14] MEDS: HYDROcodone/APAP 7.5-325MG 1 EACH TAB PO PRN ×3 (00:21→11:33)
[2018-11-14] MEDS: HYDROmorphone 0.5 MG/0.5 ML SYRINGE IVP PRN ×3 (02:46→13:08)
[2018-11-14 07:19] VITALS: PULSE 53
[2018-11-14] MEDS: NICOTINE 14MG/24HR PATCH TRANSDERM SCH (07:26)
[2018-11-14] MEDS: MONTELUKAST 10 MG TAB PO SCH (07:26)
[2018-11-14] MEDS: LISINOPRIL 5 MG TAB PO SCH (07:26)
[2018-11-14] MEDS: ASPIRIN 325 MG TAB PO SCH (07:26)
[2018-11-14] MEDS: SENNOSIDES-DOCUSATE SODIUM 1 EACH TAB PO SCH (07:26)
[2018-11-14] MEDS: CHOLECALCIFEROL 1,000 UNIT TAB PO SCH (07:26)
[2018-11-14] MEDS: PANTOPRAZOLE 40 MG TABLET PO SCH (07:26)
--- NOTE | 2018-11-14 08:33 | P.PN ---
Subjective Progress Note Date: 11/14/18 Principal diagnosis: Subtrochanteric fracture right femur This is a 58-year-old male we are following regarding his right femur fracture. He is status post close reduction with insertion of intramedullary nail of the right hip/femur. He is awaiting discharged to home versus rehab. Objective - Vital Signs Vital signs: Vital Signs Temp 98.0 F 11/14/18 07:18 Pulse 53 L 11/14/18 07:18 Resp 17 11/14/18 07:18 BP 143/75 11/14/18 07:18 Pulse Ox 97 11/14/18 07:18 Intake & Output 11/13/18 11/14/18 11/14/18 18:59 06:59 18:59 Intake Total 540 Output Total 800 Balance -260 Intake: Oral 540 Output: Urine 800 Other: Voiding Method Urinal Urinal # Voids 3 1 - Exam This is a 58-year-old male in no acute distress. He is alert and oriented 3. Exam of the right lower extremity reveals that his incisions are healing well. There is no erythema and no drainage. He has full foot and ankle motion without difficulty or pain. Neurovascular status to the lower extremity is intact. - Labs CBC & Chem 7: 11/10/18 18:48 11/10/18 08:12 Assessment and Plan (1) Right femoral shaft fracture Current Visit: Yes Status: Acute Code(s): S72.301A - UNSP FRACTURE OF SHAFT OF RIGHT FEMUR, INIT FOR CLOS FX SNOMED Code(s): 26759948 (2) Right hip pain Current Visit: Yes Status: Acute Code(s): M25.551 - PAIN IN RIGHT HIP SNOMED Code(s): 33367466 (3) Status post fall Current Visit: Yes Status: Acute Code(s): Z91.81 - HISTORY OF FALLING SNOMED Code(s): 348077296 Plan: The clinical findings are discussed with the patient. We are planning discharge today. He is most likely going home to his sister's house with home care.
[2018-11-14] MEDS: SYMBICORT 80-4.5 MCG INHALER INHALATION SCH (10:06)
[2018-11-14 15:29] VITALS: BP 133/81; RESP 18; TEMP 97.6
--- NOTE | 2018-11-15 17:04 | DS ---
DISCHARGE SUMMARY CHIEF COMPLAINT: Fracture of the right hip. HISTORY OF PRESENT ILLNESS AND PHYSICAL EXAM: Details of this man's history and physical can be found in the initial workup. LABORATORY STUDIES: While he was in a hospital he had laboratory studies, details of which can be found in the laboratory section of his chart. COURSE IN HOSPITAL: After admission he was placed on bedrest and started on intravenous fluids and taken to the operating room. Postoperatively he did fairly well and arrangements were made him to be discharged on the . FINAL DIAGNOSIS: Fracture of the right hip. OPERATIONS: ORIF of the right hip. CONSULTATIONS: Orthopedics. He is improved. MMODL / IJN: [id number] /
== END 2018-11-14 16:00 | DRG 482 ==
LOC: EC 02:16 → 4SSUR 03:24
PROVIDERS: ADMIT Orthopaedic Surgery Orthopaedic Surgery of the Spine; ATTEND Orthopaedic Surgery Orthopaedic Surgery of the Spine
PROC: 0QS636Z Reposition Right Upper Femur with Intramedullary Internal Fixation Device, Percutaneous Approach (ICD-10-PCS; principal; 2018-11-08 15:00)
DX: S72.21XA Displaced subtrochanteric fracture of right femur, initial encounter for closed fracture (principal); W10.9XXA Fall (on) (from) unspecified stairs and steps, initial encounter; Y92.009 Unspecified place in unspecified non-institutional (private) residence as the place of occurrence of the external cause; E87.6 Hypokalemia; F17.210 Nicotine dependence, cigarettes, uncomplicated; F41.9 Anxiety disorder, unspecified; G89.29 Other chronic pain; H91.93 Unspecified hearing loss, bilateral; I10 Essential (primary) hypertension; J43.9 Emphysema, unspecified; K21.9 Gastro-esophageal reflux disease without esophagitis; M41.9 Scoliosis, unspecified; Z59.0 Homelessness; Z79.899 Other long term (current) drug therapy; Z91.81 History of falling; Z79.51 Long term (current) use of inhaled steroids; Z79.1 Long term (current) use of non-steroidal anti-inflammatories (NSAID); Z88.5 Allergy status to narcotic agent
CPT/HCPCS: 36415; 71045; 80048; 83735; 84132; 85025; 85027; 85610; 85730; 88305; 88311; 93005; 94640; 96361; 96374; 96376; 99285

== ENCOUNTER 2018-11-27 11:50 | Emergency (ER) | payer OTHER ==
[2018-11-27] MEDS ORDERED: HYDROmorphone 1 MG/ML 1 ML SYRINGE IM STA (11:56)
[2018-11-27 12:03] VITALS: RESP 18; TEMP 97.9
--- NOTE | 2018-11-27 12:58 | XR ---
EXAMINATION TYPE: XR femur 2 views RT, XR knee complete 3 views LT DATE OF EXAM: 11/27/2018 COMPARISON: 11/08/2018 and 11/10/2018 HISTORY: 58-year-old male pain after fall today FINDINGS: Right femur: Antegrade intramedullary nail with hip screw fixation and single distal interlocking screw is demonst rated. The intramedullary nail bridges the oblique proximal femoral shaft fracture. There is minimal persistent displacement of 9 mm. Resorptive changes of healing along the fracture margin with mild pe riosteal callus is demonstrated. No periprosthetic fracture is seen. Hip joint appears intact. Left knee: There has been progression in the amount of lucency involving the medial femoral condyle with new fra cture lucency seen extending along the intercondylar notch and cortical defect along the medial jaquelin n of the distal femoral metaphysis. Focal cortical erosion also noted along the anterior aspect of th e distal femoral shaft. Small knee joint effusion. Extensor mechanism appears intact. IMPRESSION: 1. Right femur: Uncomplicated antegrade intramedullary nail and screw fixation across the oblique pro ximal diaphyseal fracture. There remains slight 9 mm of offset at the fracture site and there is kassandra y healing changes demonstrated. 2. Left knee: There is progressive lucency involving the medial aspect of the distal femur and a subt le focal erosion along the anterior cortex of the distal shaft. Underlying lytic disease is difficult to exclude. 3. Left knee: In addition, findings suggest a nondisplaced pathologic fracture extending from the med ial and posterior cortex of the distal femoral metaphysis extending into the intercondylar notch. Cor relate for possibility of metastatic disease.
--- NOTE | 2018-11-27 13:12 | ED ---
Lower Extremity Injury HPI - General Chief Complaint: Extremity Injury, Lower Stated Complaint: Fall Time Seen by Provider: 11/27/18 11:51 Source: patient, EMS, RN notes reviewed Mode of arrival: EMS Limitations: no limitations - History of Present Illness Initial Comments: 58-year-old male presents to the emergency Department with chief complaint of fall, right leg, left leg pain. Patient states he had a fall partially 3 weeks ago in which she had a right femur fracture fixable brought by Dr. Swann. Patient states that he is trying to his house today tripped and fell complains of worsening left knee pain which she's had in the past and right leg pain. Patient does admit that he is out of his pain medication because he believes that his kids took them. Patient denies any head injury no loss conscious. Patient denies any neck pain, back pain, upper extremity injury. - Related Data Home Medications Medication Instructions Recorded Confirmed Montelukast Sodium [Singulair] 10 mg PO DAILY 04/06/14 11/27/18 Omeprazole [PriLOSEC] 20 mg PO AC-BRKFST 04/06/14 11/27/18 Albuterol Inhaler [Ventolin Hfa 2 puff INHALATION RT-QID PRN 02/22/17 11/27/18 Inhaler] Umeclidinium [place] [Incruse 1 puff INHALATION RT-DAILY 02/22/17 11/27/18 Ellipta] Budesonide/Formoterol Fumarate 2 puff INHALATION RT-BID 10/23/18 11/27/18 [Symbicort 80-4.5 Mcg Inhaler] Cholecalciferol [Vitamin D3] 2,000 unit PO DAILY 10/23/18 11/27/18 Lisinopril [Zestril] 5 mg PO DAILY 10/23/18 11/27/18 Ibuprofen [Motrin Ib] 200 - 800 mg PO Q6H PRN 11/27/18 11/27/18 Nicotine 14Mg/24Hr Patch [Habitrol 1 patch TRANSDERM DAILY 11/27/18 11/27/18 14Mg/24Hr Patch] Previous Rx's Medication Instructions Recorded traZODone HCL [Desyrel] 100 mg PO HS #30 tab 02/24/17 Aspirin 325 mg PO BID #30 tab 11/13/18 Allergies Allergy/AdvReac Type Severity Reaction Status Date / Time morphine AdvReac Itching Verified 11/27/18 12:12 Review of Systems ROS Statement: Those systems with pertinent positive or pertinent negative responses have been documented in the HPI. ROS Other: All systems not noted in ROS Statement are negative. Past Medical History Past Medical History: Chest Pain / Angina, COPD, GERD/Reflux, Hypertension, Liver Disease, Osteoarthritis (OA), Pneumonia, Vascular Disorder Additional Past Medical History / Comment(s): hearing loss bilateral ears, diverticulitis, Chronic Hepatits C-stated on a waiting list for tx, arthritis, chronic back pain, fracture left foot NEVER HAD SX- ANKLE NOT STABLE, right leg , ribs, and right arm due to injury, scoliosis RUPTURED DISC, SEASONAL ALLERGIES , "dizzy spells alst 3 days" History of Any Multi-Drug Resistant Organisms: MRSA Date of last positivie culture/infection: 2002 MDRO Source:: left hand wound Additional Past Surgical History / Comment(s): liver bx( found hep c), bilateral hand surgery-tendon repair, left arm repair of severed arteries and tendons, R femur fx repair Past Anesthesia/Blood Transfusion Reactions: No Reported Reaction Past Psychological History: Anxiety Smoking Status: Current every day smoker Past Alcohol Use History: None Reported Past Drug Use History: Marijuana - Past Family History Father Family Medical History: Cancer General Exam Limitations: no limitations General appearance: alert, in no apparent distress Head exam: Present: atraumatic, normocephalic, normal inspection Eye exam: Present: normal appearance, PERRL, EOMI. Absent: scleral icterus, conjunctival injection, periorbital swelling Respiratory exam: Present: normal lung sounds bilaterally. Absent: respiratory distress, wheezes, rales, rhonchi, stridor Cardiovascular Exam: Present: regular rate, normal rhythm, normal heart sounds. Absent: systolic murmur, diastolic murmur, rubs, gallop, clicks GI/Abdominal exam: Present: soft, normal bowel sounds. Absent: distended, tenderness, guarding, rebound, rigid Extremities exam: Present: other (Diffuse tenderness the right thigh region, healed incisions noted, leg is neurovascularly intact no rotation noted, severe tenderness to left distal femur region, mild swelling, no ecchymosis, neurovascular intact left leg limited range of motion) Back exam: Present: normal inspection, full ROM. Absent: tenderness, paraspinal tenderness, vertebral tenderness Neurological exam: Present: alert, oriented X3, CN II-XII intact, reflexes normal. Absent: motor sensory deficit Skin exam: Present: warm, dry, intact, normal color. Absent: rash Course Vital Signs 11/27/18 11/27/18 11:59 13:25 Temperature 97.9 F Pulse Rate 70 78 Respiratory 18 18 Rate Blood Pressure 164/109 159/64 O2 Sat by Pulse 95 98 Oximetry Medical Decision Making - Medical Decision Making 58-year-old male presented emergency Department for a fall. Patient's found to have a left femur fracture with possible metastatic lesion. Patient states discussed with orthopedics associate as this was his prior surgeon they recommended patient to be transferred. Case discussed with Nikolas Finn patient will be transferred. - Lab Data Result diagrams: 11/27/18 13:20 Lab Results 11/27/18 Range/Units 13:20 WBC 7.2 (3.8-10.6) k/uL RBC 4.71 (4.30-5.90) m/uL Hgb 14.1 (13.0-17.5) gm/dL Hct 43.6 (39.0-53.0) % MCV 92.5 (80.0-100.0) fL MCH 29.9 (25.0-35.0) pg MCHC 32.3 (31.0-37.0) g/dL RDW 14.7 (11.5-15.5) % Plt Count 364 (150-450) k/uL Neutrophils % 72 % Lymphocytes % 19 % Monocytes % 6 % Eosinophils % 1 % Basophils % 0 % Neutrophils # 5.1 (1.3-7.7) k/uL Lymphocytes # 1.3 (1.0-4.8) k/uL Monocytes # 0.4 (0-1.0) k/uL Eosinophils # 0.1 (0-0.7) k/uL Basophils # 0.0 (0-0.2) k/uL Disposition Clinical Impression: Fall, Pathologic fracture of femur Disposition: OTHER INSTITUTION NOT DEFINED Referrals: Joaquin Kaiser MD [Primary Care Provider] - 1-2 days Time of Disposition: 14:00 - Out of Hospital Transfer - Req. Specs Out of Hospital Transfer - Requested Specifics: Other Emergency Center ( Nikolas Finn)
[2018-11-27 13:39] LABS: Basophils % (A) 0 %; Eosinophils # (A) 0.1 k/uL (0-0.7); Eosinophils % (A) 1 %; HCT 43.6 % (39.0-53.0); HGB 14.1 gm/dL (13.0-17.5); Lymphocytes # (A) 1.3 k/uL (1.0-4.8); Lymphocytes % (A) 19 %; MCH 29.9 pg (25.0-35.0); MCHC 32.3 g/dL (31.0-37.0); MCV 92.5 fL (80.0-100.0); Mean Platelet Volume 8.2; Monocytes # (A) 0.4 k/uL (0-1.0); Monocytes % (A) 6 %; Neutrophils # (A) 5.1 k/uL (1.3-7.7); Neutrophils % (A) 72 %; Platelet Count 364 k/uL (150-450); RBC 4.71 m/uL (4.30-5.90); RDW 14.7 % (11.5-15.5); WBC 7.2 k/uL (3.8-10.6)
--- NOTE | 2018-11-27 13:48 | XR ---
EXAMINATION TYPE: XR chest 1V DATE OF EXAM: 11/27/2018 COMPARISON: 11/08/2018 HISTORY: 58-year-old male with pain TECHNIQUE: Single frontal view of the chest is obtained. FINDINGS: Heart normal size. Relative upper lung lucency suggesting underlying emphysema. There is some focal p atchy density near the left heart margin and some stringy atelectasis at the left base. No pleural ef fusion. IMPRESSION: Suspect underlying COPD. Some focal patchy density along the left heart margin could represent atelec tasis or early infiltrate. Follow-up recommended.
[2018-11-27 13:55] LABS: ALT 13 U/L (21-72); AST 23 U/L (17-59); Albumin 3.9 g/dL (3.5-5.0); Alkaline Phosphatase 107 U/L (38-126); Anion Gap 9 mmol/L; Blood Urea Nitrogen 26 mg/dL (9-20); Carbon Dioxide 22 mmol/L (22-30); Chloride 110 mmol/L (98-107); Glucose 95 mg/dL (74-99); Sodium 141 mmol/L (137-145); Total Bilirubin 0.4 mg/dL (0.2-1.3); Total Protein 7.3 g/dL (6.3-8.2)
[2018-11-27] MEDS ORDERED: HYDROmorphone 0.5 MG/0.5 ML SYRINGE IVP STA (14:00)
[2018-11-27 14:14] LABS: INR 1.2 (<1.2); Partial Thromboplastin Time 28.6 sec (22.0-30.0); Prothrombin Time 12.7 sec (9.0-12.0)
[2018-11-27 14:48] LABS: Appearance,Urine Clear (Clear); Bilirubin,Urine Negative (Negative); Blood,Urine Negative (Negative); Color,Urine Yellow; Glucose,Urine (UA) Negative (Negative); Ketones,Urine Negative (Negative); Leukocyte Esterase,Urine Negative (Negative); Nitrite,Urine Negative (Negative); PH, Urine 5.5 (5.0-8.0); Protein,Urine Negative (Negative); Specific Gravity,Urine 1.015 (1.001-1.035); Urobilinogen,Urine <2.0 mg/dL (<2.0)
[2018-11-27 15:23] VITALS: BP 140/80; PULSE 70
== END 2018-11-27 15:15 | disposition other institution (70) ==
LOC: EC 11:50
DX: S72.91XA Unspecified fracture of right femur, initial encounter for closed fracture (principal); M79.605 Pain in left leg; J44.9 Chronic obstructive pulmonary disease, unspecified; K21.9 Gastro-esophageal reflux disease without esophagitis; I10 Essential (primary) hypertension; F17.200 Nicotine dependence, unspecified, uncomplicated; Z98.890 Other specified postprocedural states; Z86.14 Personal history of Methicillin resistant Staphylococcus aureus infection; Z79.51 Long term (current) use of inhaled steroids; Z79.899 Other long term (current) drug therapy; Z88.5 Allergy status to narcotic agent; W01.0XXA Fall on same level from slipping, tripping and stumbling without subsequent striking against object, initial encounter
CPT/HCPCS: 36415; 80053; 85025; 85610; 85730; 81003; 73552; 73562; 71045; 99285; 96374; 96372; L1830; J1170 ×2